=== PATIENT | male | born 1950 | race Caucasian/White ===

== ENCOUNTER 2024-03-17 08:58 | Inpatient (IN) | payer OTHER ==
--- OUTSIDE RECORDS SUMMARY | 2024-03-17 09:01 | XMS REPORT | Clinical Summary ---
Author Name Unknown Organization [facility] [place] Address [address] [place] [address] Care Team Providers Care Gas Operation Manager Name Role Phone David Álvarez MD Primary Care Provider [phone] Negrito Mott MD Unavailable [phone] William OCHOA MD, Thomas G Unavailable [phone] Allergies Active Allergy Reactions Criticality Noted Date Comments Clopidogrel Itching 10/23/2017 rash Penicillins Other (See Comments),Rash Low 6 Medications Medication Sig Dispensed Refills Start Date End Date Status aspirin 325 mg tablet Take 1 tablet (325 mg) by mouth daily. Active ascorbic acid (VITAMIN C) 500 mg tablet Take 1 tablet (500 mg) by mouth. Active busPIRone (BUSPAR) 7.5 mg tablet TAKE 1 TABLET BY MOUTH TWICE A DAY Active calcium carbonate (OS-RIDDHI) 600 mg calcium (1,500 mg) tablet Take 1 tablet (600 mg) by mouth. Active dupilumab (Dupixent Pen) 300 mg/2 mL pnij EVERY TWO WEEKS Act nick Toujeo SoloStar U-300 Insulin 300 unit/mL (1.5 mL) insulin pen INJECT 40 UNITS UNDER THE SKIN AT BEDTIME Active HumaLOG KwikPen Insulin 100 unit/mL insulin pen SEE ATTACHED INSTRUCTIONS FOR DETAILS Active magnesium oxide (MAOX) 400 mg tablet 0.5 tablets (200 mg). Active metFORMIN (GLUCOPHAGE) 1000 mg tablet Take 1 tablet (1,000 mg) by mouth 2 (two) times a day with meals. Active pantoprazole (PROTONIX) 40 mg EC tablet Take 1 tablet (40 mg) by mouth. 12/04/2017 Active omega 4-raq-tsp-fish oil (Fish OiL) 1,000 mg (120 mg-180 mg) cap Take by mouth. Active telmisartan-amLOD IPine (TWYNSTA) 40-5 mg per tablet TAKE 1 TABLET BY MOUTH EVERY DAY FOR 30 DAYS 11/12/2023 Active spironolactone (ALDACTONE) 25 mg tablet Take 1 tablet (25 mg) by mouth. Active carvedilol (COREG) 3.125 mg tablet Take 1 tablet (3.125 mg) by mouth. 10/15/2023 Active multivitamin tab tablet Take by mouth. Active omega-3 fatty acids (FISH OIL CONCENTRATE ORAL) Take by mouth. Act nick tamsulosin (FLOMAX) 0.4 mg 24 hr capsuleIndication s:Lower urinary tract symptoms Take 1 capsule (0.4 mg) by mouth daily. Take 30 minutes after evening meal. 90 capsule 3 12/05/2023 Active omeprazole (PriLOSEC) 20 mg capsule Take 1 capsule (20 mg) by mouth every morning before breakfast. 4 Discontinue d(Therapy completed) atorvastatin (LIPITOR) 80 mg tablet Take 1 tablet (80 mg) by mouth at bedtime. 12/15/2020 4 Discontinue d(Therapy completed) FreeStyle Tha 2 Sensor kit DIRECTED 07/25/2023 4 Discontinue d(Other/Not Applicable) triamcinolone (KENALOG) ointment 0.1% Apply topically to affected area(s). 4 Discontinue d(Therapy completed) TURMERIC ORAL Take by mouth. 4 Discontinue d(Therapy completed) Active Problems Problem Noted Date Diagnosed Date Nocturia 12/05/2023 Overactive bladder 12/05/2023 Urge incontinence 12/05/2023 Lower urinary tract symptoms 12/05/2023 Coronary arteriosclerosis 10/04/2023 Chronic kidney disease 10/04/2023 Hyperlipidemia 10/04/2023 Overview: Last Assessment & Plan: LDL goal less than 70. Maintained on statin therapy. Labs followed by PCP. -continue atorvastatin 80 mg Hypertension 10/04/2023 Overview: Last Assessment & Plan: Reports he was taken off multiple hypertensive medications following his right CEA due to hypertension. His PCP recently started him on telmisartan/amlodipine 45 mg - 5 mg as he has had progressively more hypertensive readings over the last few months. With his history of CABG recommended that we restart a beta-jose. Additionally reports he has not use his CPAP and months due to conversion from not using distilled water. This may explain his hypertensive readings. He will contact his previous sleep medicine physician Dr. Shahid. -continue telmisartan/amlodipine -start carvedilol 3.125 mg BID -Ambulatory blood pressure monitoring --> will contact clinic with readings in 2-3 weeks time. -RTC in 4 weeks Adenocarcinoma of prostate 10/04/2023 Cancer Staging:Clinical stage from 10/09/2023:Stage Unknown(cTX, cN0, cM0, PSA: 13.3, Grade Group: 2) - Signed by Phani Hammond PA on 10/09/2023 Overview: Last Assessment & Plan: Recently diagnosed stage II prostate cancer. Managed by Urology, Dr. Gamez History of myocardial infarction 10/04/2023 Type 2 diabetes mellitus 10/04/2023 Claudication 02/20/2018 Overview: Last Assessment & Plan: His leg cramping does not seem consistent with claudication. BRIDGETTE/Doppler 02/2018 with normal ABIs. Right leg had abnormal waveforms and there was <50% stenosis in the right common femoral artery. Suspect leg cramping may be due to electrolyte deficiency and/or dehydration. Encouraged increased water/electrolyte drink intake as well as a trial of magnesium supplementation. Disorder of carotid artery 10/23/2017 Overview: Last Assessment & Plan: S/p right CEA last summer. Followed by vascular, Dr. Love. -continue aspirin and statin Hemorrhage into subarachnoid space of neuraxis 0 04/05/2017 Overview: Last Assessment & Plan: Followed by neurology. Need stringent blood pressure control. History of coronary artery bypass grafting 12/23 Overview: Last Assessment & Plan: Stable and asymptomatic. Sternotomy site healed well Sleep apnea 10/19/2015 Overview: Last Assessment & Plan: Reports he has not used his CPAP in the last few months due to corrosion caused by not using distilled water. He will follow-up with his sleep medicine physician Dr. Shahid. Resolved Problems Problem Noted Date Diagnosed Date Resolved Date Diabetes mellitus 10/04/2023 10/09/2023 Overview: Last Assessment & Plan: Followed by PCP. Encounters Date Type Department Care Team Description 02/13/2024 10:30 AM CDT Follow-Up [facility] [address] [place] [address], [facility] [place] [address] Jr Thomas III, MD Lower urinary tract symptoms 02/13/2024 Travel 12/05/2023 11:00 AM CDT Consult [facility] [address] [place] [address], 7th [place] [address] Jr Thomas III, MD Lower urinary tract symptoms (Primary Dx); Adenocarcinoma of prostate; Overactive bladder; Urge incontinence; Nocturia 12/05/2023 Travel 10/09/2023 11:33 AM CDT - 10/09/2023 11:59 PM CDT Hospital Encounter [facility] [address] [place] [id number] Phani Hammond PA Adenocarcinoma of prostate Discharge Disposition: Home 10/09/2023 8:17 AM CDT - 10/09/2023 11:32 AM CDT Hospital Encounter [facility] - Radiation Oncology [address] [facility], 7th [place] [address] David Álvarez MD Choi, Seungtaek, MD Adenocarcinoma of prostate (Primary Dx) Discharge Disposition: Home 10/09/2023 8:00 AM CDT Office Visit Gen[facility] [address], 7th [place] [address] David Álvarez MD Adenocarcinoma of prostate (Primary Dx) 10/09/2023 Orders Only [facility] [address] [place] [address], 7th [place] [address] Phani Hammond PA Adenocarcinoma of prostate (Primary Dx) 10/09/2023 Travel 10/05/2023 9:30 AM CDT NPR [facility] PATIENT ACCESS 09/16/2023 8:05 PM DOOR MAKER Ancillary Procedure [facility] [address] [place] [address] David Álvarez MD Cancer 09/16/2023 8:00 PM DOOR MAKER Ancillary Procedure [facility] [address] [place] [id number] David Álvarez MD Cancer 09/07/2023 11:45 PM DOOR MAKER Ancillary Procedure [facility] [address] [place] [address] David Álvarez MD Cancer 09/07/2023 11:40 PM DOOR MAKER Ancillary Procedure [facility] [address] [place] [address] David Álvarez MD Cancer 09/07/2023 11:35 PM DOOR MAKER Ancillary Procedure [facility] [address] [place] [address] David Álvarez MD Cancer 09/05/2023 Travel 09/05/2023 Lab Requisition [facility] Fady Quezada MD Putzi, Mathew J, MD after 03/18/2023 Surgical History Surgery Date Site/Laterality Comments CORONARY ARTERY BYPASS GRAFT 07/23/2015 - 07/22/2016 6 vessel CAROTID ARTERY ANGIOPLASTY 08/28/2023 Medical History Medical History Date Comments Obstructive sleep apnea syndrome Ulcerative colitis Coronary artery disease due to calcified coronary lesion Type 2 diabetes mellitus 10/04/2023 Disorder of carotid artery 10/23/2017 Last Assessment & Plan: S/p right CEA last summer.Followed by vascular, Dr. Love.-continue aspirin and statin Hypertension 10/04/2023 Last Assessment & Plan: Reports he was taken off multiple hypertensive medications following his right CEA due to hypertension. His PCP recently started him on telmisartan/amlodipine 45 mg - 5 mg as he has had progressively more hypertensive readings over the last few months. With his history of CABG recommended that we restart a Claudication 02/20/2018 Last Assessment & Plan: His leg cramping does not seem consistent with claudication. BRIDGETTE/Doppler 02/2018 with normal ABIs. Right leg had abnormal waveforms and there was <50% stenosis in the right common femoral artery. Suspect leg cramping may be due to electrolyte deficiency and/or dehydration. Encouraged increased water/andrew Hyperlipidemia 10/04/2023 Last Assessment & Plan: LDL goal less than 70. Maintained on statin therapy. Labs followed by PCP.-continue atorvastatin 80 mg History of myocardial infarction 10/04/2023 Family History Medical History Relation Name Comments Prostate cancer Father Breast cancer Sister Relation Name Status Comments Father Sister Social History Tobacco Use Types Packs/Day Years Used Date Smoking Tobacco: Former Cigarettes Smokeless Tobacco: Former Snuff Quit: 2003 Tobacco Cessation:Counseling Given: Not Answered Education Answer Date Recorded What is the highest level of school you have completed or the highest degree you have received? Associate degree: occupational, technical, or vocational program 10/09/2023 Sex and Gender Information Value Date Recorded Sex Assigned at Not on file Gender Identity Not on file Sexual Orientation Not on file Job Start Date Occupation Industry Not on file Not on file Not on file Obstetrics History Last Filed Vital Signs Vital Sign Reading Time Taken Comments Blood Pressure 138/77 02/13/2024 10:21 AM CDT Pulse 86 02/13/2024 10:21 AM CDT Temperature 36.1 C (97 F) 02/13/2024 10: 21 AM CDT Respiratory Rate 15 02/13/2024 10:2 1 AM CDT Oxygen Saturation 97% 02/13/2024 10: 21 AM CDT Inhaled Oxygen Concentration - - Weight 110.4 kg (243 lb 6.2 oz) 024 10:21 AM CDT Height 169.5 cm (5' 6.73") 02/13/2024 1 0:21 AM CDT Body Mass Index 38.43 02/13/2024 10:21 AM CDT Plan of Treatment Health Maintenance Due Date Last Done Comments Pneumococcal Vaccine: 65+ Ye ars (2 of 2 - PCV) 04/24/2018 04/24/2017 COVID-19 Vaccine (2022-24 season) 2023 Influenza Vaccine 03/23/2024 04/04/2023, 04/24/2017 Procedures Procedure Name Priority Date/Time Associated Diagnosis Comments PROSTATE SPECIFIC ANTIGEN Routine 10/09/2023 11:41 AM CDT Adenocarcinoma of prostate after 03/18/2023 Results * (ABNORMAL) PSA (10/09/2023 11:41 AM CDT) Prostate Specific Antigen 16.1(H) 0.0 - 4.0 ng/mL 10/09/2023 12:33 PM CDT [facility] PSA Indication Diagnostic 10/09/2023 12:33 PM CDT [facility] Blood Peripheral blood specimen / Unknown Venipuncture / Unknown 10/09/2023 11:41 AM CDT 10/09/2023 11:44 AM CDT Narrative [facility] - 10/09/2023 12:33 PM CDT "Reference range established based on adult population Results greater than 4519 ng/mL may not be reliable due to matrix effect with extended dilution as it exceeds the guest services agent's recommended limit. Caution should be exercised when interpreting such values and done in conjunction with clinical context. Phani CHOI LAB BLOOD ORDERABLE S [facility] [address] [facility] [place] [address] after 03/18/2023 Care Teams Gas Operation Manager Relationship Specialty Start Date End Date David Álvarez MD [address] [place] [phone] [email or web address] PCP - General Urology 09/05/23 Negrito Mott MD [address] [place] [phone] [email or web address] Consulting Physician Radiation Oncology 10/09/23 Jr Thomas III, MD [address] [place] [address] [phone] [email or web address] Consulting Physician Urology 12/05/23
[2024-03-17] MEDS ORDERED: PANTOPRAZOLE 40 MG INJ ONE (09:18)
[2024-03-17] MEDS ORDERED: NA CHLORIDE 0.9% 250 ML ONE (09:19)
[2024-03-17] MEDS ORDERED: NA CHLORIDE 0.9% 1,000 ML ONE (09:19)
[2024-03-17 09:27] LABS: Absolute Basophils 0.1 K/uL (0-0.5); Absolute Lymphocytes (CBC) 1.3 K/uL (0.7-4.9); Absolute Monocytes 0.5 K/uL (0.1-1.3); Basophils % 0.6 % (0-1.3); Eosinophils % 0.3 % (0-4.4); Lymphocytes % 11.7 % (15.3-44.8); MCH 27.3 pg (27.0-35.0); MCHC 32.3 g/dL (32.0-36.0); MCV 84.5 fL (80-100); MPV 7.1 fL (7.6-11.3); Monocytes % 4.6 % (3.3-12.3); Neutrophils % 82.8 % (41.7-73.7); Platelets 258 thou/uL (152-406); RBC Red Blood Cell Count 4.03 M/uL (4.33-5.43); Red Cell Distribution Width 16.8 % (12.1-15.2)
[2024-03-17 09:30] LABS: PT Prothrombin Time 12.7 SECONDS (9.4-12.5); Protime INR 1.14
[2024-03-17 09:41] LABS: Albumin 3.4 g/dL (3.4-5.0); Albumin/Globulin Ratio 1.1 (1.1-1.8); Anion Gap 12.1 mEq/L (5.0-15.0); Bilirubin Total 0.6 mg/dL (0.2-1.0); Globulin 3.2 g/dL (2.3-3.5); Potassium 5.1 mEq/L (3.5-5.1); Protein, Total 6.6 g/dL (6.4-8.2)
--- NOTE | 2024-03-17 10:06 | RAD REPORT ---
EXAM DESCRIPTION: CT - Abdomen Pelvis Wo Contrast - 03/17/2024 9:23 am CLINICAL HISTORY: ABD PAIN COMPARISON: No comparisons TECHNIQUE: Thin cut axial CT imaging of the abdomen and pelvis was performed without IV contrast. Mu ltiplanar reformats were generated and reviewed. All CT scans are performed using dose optimization technique as appropriate and may include automated exposure control or mA/KV adjustment according to patient size. FINDINGS: No suspicious findings in the lung bases. The liver, spleen, and pancreas show no suspicious findings. . Small left adrenal 1.4 cm nodule conta ining macroscopic fat density. Gallbladder and biliary tree are also without suspicious finding. Symmetric renal contour, without suspicious parenchymal findings within limits of noncontrast techniq ue. No evidence of hydroureteronephrosis. Few small punctate bilateral renal calculi not exceeding 3 mm in size. Few small exophytic renal cysts. Largest measuring 1.4 cm. No dilated bowel loops or bowel wall thickening. No free air, free fluid or inflammatory stranding. N o hernia, mass or bulky lymphadenopathy. Mild colonic diverticulosis. The urinary bladder is without significant finding. No suspicious bony findings. IMPRESSION: Few small nonobstructing bilateral renal calculi not exceeding 3 mm. No other acute intra-abdominal process. Incidentally noted 1.4 cm left adrenal fat containing nodule, suggesting a small myelolipoma. Mild colonic diverticulosis.
--- NOTE | 2024-03-17 10:30 | EDPHYS ---
Physician Documentation [facility] Name: Blair Hall Age: 73 yrs Sex: Male : 1950 Arrival Date: 03/17/2024 Time: 08:58 Bed 2 Private MD: ED Physician Nicolas Warner HPI: 03/17 09:04 This 73 yrs old Male presents to ER via EMS with complaints of GI Bleeding. ec2 09:04 Patient arrives today d/t concern for melena as well as vomiting coffee-ground emesis. ec2 Patient reports history of alcohol abuse however no diagnosis of cirrhosis. Patient with history of previous GI bleed however greater than 40 years ago. No significant abdominal pain. Is on aspirin, no other antiplatelet or anticoagulation.. Historical: - Allergies: 09:02 PENICILLINS; dd2 - PMHx: 09:02 Diabetes mellitus; Hypertensive disorder; Gastroesophageal reflux disease; dd2 - PSHx: 09:02 Coronary artery bypass graft; dd2 - Immunization history:: Adult Immunizations unknown. - Infectious Disease History:: Denies. - Social history:: Smoking status: Patient denies any tobacco usage or history of. ROS: 09:04 Constitutional: as per hpi ec2 Exam: 09:04 Constitutional: GEN: NAD Head: atraumatic Eyes: EOMI Ears: External ears are ec2 normal. CV: tachycardia LUNGS: no respiratory distress ABD: Soft, not guarding, not rigid SKIN: no evidence of rashes MSK: no evidence of trauma Vital Signs: 09:00 BP 122 / 84; Pulse 116; Resp 16; Temp 98.3; Pulse Ox 98% ; dd2 09:36 BP 103 / 84; Pulse 117; Resp 18 S; Pulse Ox 98% on R/A; Pain 0/10; iw 09:45 BP 107 / 78; Pulse 112; ec2 10:37 BP 102 / 68; Pulse 103; Resp 22; Temp 98.3; Pulse Ox 99% on R/A; kj2 11:45 BP 80 / 62; Pulse 116; Resp 23; Pulse Ox 98% on R/A; cm10 12:00 BP 96 / 78; Pulse 113; Resp 22; Pulse Ox 97% on R/A; cm10 12:30 BP 99 / 66; Pulse 114; Resp 22; Pulse Ox 97% on R/A; cm10 13:00 BP 120 / 67; Pulse 115; Resp 23; Pulse Ox 98% on R/A; cm10 13:15 BP 130 / 60; Pulse 114; Resp 21; Pulse Ox 97% on R/A; cm10 14:15 BP 101 / 58; Pulse 104; Resp 19; Pulse Ox 94% on R/A; cm10 15:00 BP 118 / 71; Pulse 107; Resp 19; Pulse Ox 98% on R/A; cm10 15:30 BP 134 / 58; Pulse 107; Resp 19; Pulse Ox 99% on R/A; cm10 16:00 BP 127 / 52; Pulse 113; Resp 21; Pulse Ox 98% on R/A; cm10 16:30 BP 122 / 60; Pulse 112; Resp 22; Pulse Ox 99% on R/A; cm10 17:00 BP 120 / 60; Pulse 108; Resp 19; Pulse Ox 98% on R/A; cm10 09:36 Pain Scale: Adult iw MDM: 08:58 Patient medically screened. ec2 09:04 Data reviewed: vital signs. ED course: Patient arrives today for melena as well as ec2 vomiting coffee-ground emesis. Examination remarkable for nontender abdomen otherwise slight tachycardia noted. Will obtain lab work, CT imaging, give the patient Protonix. Suspect GI bleed, possible variceal versus ulcer, possible gastritis . 09:17 ED course: EKG independently reviewed and interpreted by me, shows sinus tachycardia, ec2 rate 113, no acute ST segment elevations, intervals nonconcerning, PAC noted.. 09:35 ED course: CBC shows slight anemia. . ec2 10:28 ED course: I discussed the case with the lamps tester and inspector, who will ec2 consult. Discussed the case with the hospitalist will admit.. 03/17 09:04 Order name: CBC with Diff; Complete Time: 09:34 ec2 03/17 09:04 Order name: CMP; Complete Time: 09:45 ec2 03/17 09:04 Order name: PT-INR; Complete Time: 09:34 ec2 03/17 09:04 Order name: Ptt, Activated; Complete Time: 09:34 ec2 03/17 09:04 Order name: Type And Screen ec2 03/17 10:36 Order name: Antibody Identification EDMS 03/17 13:46 Order name: Hematocrit EDMS 03/17 13:46 Order name: Hemoglobin EDMS 03/17 13:46 Order name: Basic Metabolic Panel EDMS 03/17 13:46 Order name: Basic Metabolic Panel EDMS 03/17 13:46 Order name: Basic Metabolic Panel EDMS 03/17 13:46 Order name: Basic Metabolic Panel EDMS 03/17 13:46 Order name: Basic Metabolic Panel EDMS 03/17 13:46 Order name: Basic Metabolic Panel EDMS 03/17 13:46 Order name: Basic Metabolic Panel EDMS 03/17 13:46 Order name: Basic Metabolic Panel EDMS 03/17 13:46 Order name: CBC with Automated Diff EDMS 03/17 13:46 Order name: CBC with Automated Diff EDMS 03/17 13:46 Order name: CBC with Automated Diff EDMS 03/17 13:46 Order name: CBC with Automated Diff EDMS 03/17 13:46 Order name: CBC with Automated Diff EDMS 03/17 13:46 Order name: CBC with Automated Diff EDMS 03/17 13:46 Order name: CBC with Automated Diff EDMS 03/17 13:46 Order name: CBC with Automated Diff EDMS 03/17 13:46 Order name: Lipid Profile EDMS 03/17 13:46 Order name: Lipid Profile EDMS 03/17 13:46 Order name: Magnesium EDMS 03/17 13:46 Order name: Magnesium EDMS 03/17 13:46 Order name: Magnesium EDMS 03/17 13:46 Order name: Magnesium EDMS 03/17 13:46 Order name: Magnesium EDMS 03/17 13:46 Order name: Magnesium EDMS 03/17 13:46 Order name: Magnesium EDMS 03/17 13:46 Order name: Magnesium EDMS 03/17 13:46 Order name: Phosphorus EDMS 03/17 13:46 Order name: Phosphorus EDMS 03/17 13:46 Order name: Phosphorus EDMS 03/17 13:46 Order name: Phosphorus EDMS 03/17 13:46 Order name: Phosphorus EDMS 03/17 13:46 Order name: Phosphorus EDMS 03/17 13:46 Order name: Phosphorus EDMS 03/17 13:46 Order name: Phosphorus EDMS 03/17 13:52 Order name: ABO/RH no charge EDMS 03/17 16:57 Order name: Glucose, Ancillary Testing EDMS 03/17 09:04 Order name: CT Abd/Pelvis - Without Contrast; Complete Time: 10:21 ec2 03/17 13:46 Order name: CONS Physician Consult EDMD 03/17 09:04 Order name: IV Saline Lock; Complete Time: 09:12 ec2 03/17 09:04 Order name: Labs collected and sent; Complete Time: 09:12 ec2 Administered Medications: 09:35 Drug: Pantoprazole IV 8 mg/hr IV at 25 ml/hr continuous; (Standard dilution is 80 mg in iw 250 mL NS) Route: IV; Rate: 25 ml/hr; Site: right wrist; 17:20 Follow up: IV Status: Infusion continued upon admission cm10 09:36 Drug: Pantoprazole IVP 80 mg IVP once Route: IVP; Site: right wrist; iw 10:45 Follow up: Response: No adverse reaction kj2 09:36 Drug: NS 0.9% IV 1000 ml IV at 1 bolus Per protocol; 1000 mL bolus Route: IV; Rate: 1 iw bolus; Site: right hand; 17:20 Follow up: Response: No adverse reaction; IV Status: Completed infusion; IV Intake: cm10 1000ml Disposition Summary: 03/17/24 10:29 Hospitalization Ordered Notes: Hospitalization Status: Inpatient Admission ec2 Provider: Geronimo Wells ecShandra Condition: Stable ec2 Problem: new ec2 Symptoms: have improved ec2 Bed/Room Type: Standard ec2 Location: Telemetry/MedSurg (Inpatient)(03/17/24 15:39) bd Room Assignment: 221(03/17/24 15:44) bd Diagnosis - GI Bleed/ Gastrointestinal hemorrhage, unspecified ec2 Forms: - Medication Reconciliation Form ec2 - SBAR form ec2 - Leadership Thank You Letter ec2 Signatures: Dispatcher [employer] EDMS Disha Allred bd Yazmin Brennan RN RN iw Nicolas Warner MD MD ec2 RIGOBERTO LUDWIG RN RN dd2 Zarina Mansfield RN cm10 Romana Moraes RN kj2 Corrections: (The following items were deleted from the chart) 09:05 09:05 CBC+H.LAB.BRZ ordered. EDMS EDMS 09:05 09:05 COMPREHENSIVE METABOLIC PANEL+C.LAB.BRZ ordered. EDMS EDMS 09:05 09:05 PROTIME (+INR)+COAG.LAB.BRZ ordered. EDMS EDMS 09:05 09:05 PTT, ACTIVATED+COAG.LAB.BRZ ordered. EDMS EDMS 09:05 09:05 TYPE AND SCREEN+BB.LAB.BRZ ordered. EDMS EDMS 09:05 09:05 Abdomen Pelvis Wo Con+CT.RAD.BRZ ordered. EDMS EDMS 09:06 09:04 Constitutional: GEN: NAD Head: atraumatic Eyes: EOMI Ears: External ears are ec2 normal. CV: regular rate LUNGS: no respiratory distress ABD: Soft, not guarding, not rigid SKIN: no evidence of rashes MSK: no evidence of trauma ec2 13:13 10:29 Telemetry/MedSurg (Inpatient) ec2 bd 13:13 10:29 ec2 bd 15:39 13:13 [facility] ER HOLD bd bd 15:39 13:13 ERHOLD- bd bd 15:44 15:39 422 bd bd
--- NOTE | 2024-03-17 10:30 | ER ---
Nurse's Notes [facility] Name: Blair Hall Age: 73 yrs Sex: Male : 1950 Arrival Date: 03/17/2024 Time: 08:58 Bed 2 Private MD: Diagnosis: GI Bleed/ Gastrointestinal hemorrhage, unspecified Presentation: 03/17 09:00 Chief complaint: EMS states: Pt brought in via EMS from home with c/o coffee ground dd2 emesis and black tarry stools. EMS states pt was pale on arrival. BGS 222. Coronavirus screen: At this time, the client does not indicate any symptoms associated with coronavirus-19. Ebola Screen: No symptoms or risks identified at this time. Initial Sepsis Screen: Does the patient meet any 2 criteria? No. Patient's initial sepsis screen is negative. Does the patient have a suspected source of infection? No. Patient's initial sepsis screen is negative. Risk Assessment: Do you want to hurt yourself or someone else? Patient reports no desire to harm self or others. Onset of symptoms is unknown. Care prior to arrival: Medication(s) given: Normal saline infusion, 500 mL, zofran 4 mg, IV initiated. 20 GA, in the right hand, Glucose check: 222. 09:00 Method Of Arrival: EMS: [facility] dd2 09:00 Acuity: DESHAUN 3 dd2 Triage Assessment: 09:02 General: Appears ill, Behavior is calm, cooperative. Pain: Complains of pain in abdomen.dd2 Historical: - Allergies: 09:02 PENICILLINS; dd2 - PMHx: 09:02 Diabetes mellitus; Hypertensive disorder; Gastroesophageal reflux disease; dd2 - PSHx: 09:02 Coronary artery bypass graft; dd2 - Immunization history:: Adult Immunizations unknown. - Infectious Disease History:: Denies. - Social history:: Smoking status: Patient denies any tobacco usage or history of. Screenin:16 [facility] ED Fall Risk Assessment (Adult) History of falling in the last 3 months, iw including since admission No falls in past 3 months (0 pts) Confusion or Disorientation No (0 pts) Intoxicated or Sedated No (0 pts) Impaired Gait No (0 pts) Mobility Assist Device Used Yes (1 pt) Altered Elimination No (0 pt) Score/Fall Risk Level 0 - 2 = Low Risk Oriented to surroundings, Maintained a safe environment. Abuse screen: Denies threats or abuse. Nutritional screening: No deficits noted. Tuberculosis screening: No symptoms or risk factors identified. Assessment: 09:16 General: Appears uncomfortable, Behavior is calm, cooperative. Neuro: Level of iw Consciousness is awake, alert, obeys commands, Oriented to person, place, time, situation, Moves all extremities. GI: Reports rectal bleeding, bloody stool, vomiting. Derm: Skin is pink, warm \\T\\ dry. Decubitus. 10:43 Reassessment: Patient appears in no apparent distress at this time. Patient and/or kj2 family updated on plan of care and expected duration. Pain level reassessed. Patient is alert, oriented x 3, equal unlabored respirations, skin warm/dry/pink. 12:00 Reassessment: Patient appears in no apparent distress at this time. No changes from cm10 previously documented assessment. Patient and/or family updated on plan of care and expected duration. Pain level reassessed. Patient is alert, oriented x 3, equal unlabored respirations, skin warm/dry/pink. 14:00 Reassessment: Pt assisted with bedpan. Pt not able to have a BM. Pt noted to be clean. cm10 Vital Signs: 09:00 BP 122 / 84; Pulse 116; Resp 16; Temp 98.3; Pulse Ox 98% ; dd2 09:36 BP 103 / 84; Pulse 117; Resp 18 S; Pulse Ox 98% on R/A; Pain 0/10; iw 09:45 BP 107 / 78; Pulse 112; ec2 10:37 BP 102 / 68; Pulse 103; Resp 22; Temp 98.3; Pulse Ox 99% on R/A; kj2 11:45 BP 80 / 62; Pulse 116; Resp 23; Pulse Ox 98% on R/A; cm10 12:00 BP 96 / 78; Pulse 113; Resp 22; Pulse Ox 97% on R/A; cm10 12:30 BP 99 / 66; Pulse 114; Resp 22; Pulse Ox 97% on R/A; cm10 13:00 BP 120 / 67; Pulse 115; Resp 23; Pulse Ox 98% on R/A; cm10 13:15 BP 130 / 60; Pulse 114; Resp 21; Pulse Ox 97% on R/A; cm10 14:15 BP 101 / 58; Pulse 104; Resp 19; Pulse Ox 94% on R/A; cm10 15:00 BP 118 / 71; Pulse 107; Resp 19; Pulse Ox 98% on R/A; cm10 15:30 BP 134 / 58; Pulse 107; Resp 19; Pulse Ox 99% on R/A; cm10 16:00 BP 127 / 52; Pulse 113; Resp 21; Pulse Ox 98% on R/A; cm10 16:30 BP 122 / 60; Pulse 112; Resp 22; Pulse Ox 99% on R/A; cm10 17:00 BP 120 / 60; Pulse 108; Resp 19; Pulse Ox 98% on R/A; cm10 09:36 Pain Scale: Adult iw ED Course: 08:58 Patient arrived in ED. dd2 08:58 Nicolas Warner MD is Attending Physician. ec2 09:02 Triage completed. dd2 09:02 Initial lab(s) drawn, by me. Maintain EMS IV. Dressing intact. Good blood return noted. iw Site clean \\T\\ dry. Gauge \\T\\ site: 20 RAC. 09:02 Arm band placed on left wrist. Patient placed in an exam room, on a stretcher, on dd2 film inspector, on pulse oximetry. 09:15 Yazmin Brennan, RN is Primary Nurse. iw 09:20 Inserted saline lock: 20 gauge in right hand, using aseptic technique. Flushed with 10 zm mL NS. 09:23 CT Abd/Pelvis - Without Contrast In Process Unspecified. EDMS 10:29 Geronimo Wells is Hospitalizing Provider. ec2 10:36 Patient has correct armband on for positive identification. Bed in low position. Call kj2 light in reach. Provided Education on: call light, fall precautions. Report received from ALLISON Arce. 10:43 No provider procedures requiring assistance completed. kj2 13:23 1323 CM met with patient and daughter Diana at bedside in the ED exam room. Patient ane identified by name and . Demographic sheet confirmed. states he lives alone at [facility]. Patient reports he occasionally uses a cane, stating "It depends on how my legs feel." Other DME includes a built in shower seat and gin pole operator bars in his bathroom. Mr. Hall reports he does not have HH, home oxygen or other medical services at this time. No MPOA at this time, both and Diana wish to complete an MPOA at this time. CM left MPOA document for 's and Diana's review. 's preferred discharge plan is to return to live at [facility] and Diana states she can transport him home. CM team will continue to follow and coordinate care. 16:55 Patient admitted, IV remains in place. cm10 Administered Medications: 09:35 Drug: Pantoprazole IV 8 mg/hr IV at 25 ml/hr continuous; (Standard dilution is 80 mg in iw 250 mL NS) Route: IV; Rate: 25 ml/hr; Site: right wrist; 17:20 Follow up: IV Status: Infusion continued upon admission cm10 09:36 Drug: Pantoprazole IVP 80 mg IVP once Route: IVP; Site: right wrist; iw 10:45 Follow up: Response: No adverse reaction [facility] 09:36 Drug: NS 0.9% IV 1000 ml IV at 1 bolus Per protocol; 1000 mL bolus Route: IV; Rate: 1 iw bolus; Site: right hand; 17:20 Follow up: Response: No adverse reaction; IV Status: Completed infusion; IV Intake: cm10 1000ml Medication: 09:17 VIS not applicable for this client. iw Intake: 17:20 IV: 1000ml; Total: 1000ml. cm10 Outcome: 10:29 Decision to Hospitalize by Provider. ec2 16:56 Admitted to Med/surg accompanied by tech, via wheelchair, room 221, 10 16:56 Condition: good 16:56 Instructed on the need for admit, 17:21 Patient left the ED. cm10 Signatures: Dispatcher [employer] Yazmin Hernández RN RN iw Martinez, Zaina zm Martinez, Clarissa, RN RN 10 Nicolas Warner MD MD ec2 Romana Moraes RN RN kj2 Lexis Gaitan RN RN ane DAVIS, DIANA RN RN dd2
--- NOTE | 2024-03-17 12:10 | P.HP ---
Certification for Inpatient Patient admitted to: Inpatient Practitioner: I am a practitioner with admitting privileges, knowledge of patient current condition, hospital course, and medical plan of care. Services: Services provided to patient in accordance with Admission requirements found in Title 42 Section 412.3 of the Code of Federal Regulations Patient History Date of Service: 03/17/24 Reason for admission: GI bleed History of Present Illness: Blair Hall is a 73 year old male with PMhx diabetes mellitusNIDDM, GERD, hypertension, CAD status post CABG who presents to the ED with chief complaint of vomiting blood with coffee-ground emesis and bloody stool early this morning. He reports having a GI bleed multiple years ago and denies taking blood thinners. On evaluation, he appears sleepy, tachycardic with soft blood pressure. PPI gtt started in the ED. Abdomen distended and nontender, he is in no acute distress. Initial vitals BP 122 / 84; Pulse 116; Resp 16; Temp 98.3; Pulse Ox 98% Laboratory evaluation H&H 11/34, neutrophils 82, sodium 133, BUN/creatinine 44/1.29, GFR 58, serum glucose 236. CT abdomen pelvis reports "Few small nonobstructing bilateral renal calculi not exceeding 3 mm. No other acute intra-abdominal process. Incidentally noted 1.4 cm left adrenal fat containing nodule, suggesting a small myelolipoma. Mild colonic diverticulosis." Blair will be admitted to hospitalist service for further evaluation and treatment, Dr. Soriano consulted. Allergies Penicillins Allergy (Verified 03/17/24 16:42) Itching/Hives/Rash Home Medications: Buspirone HCl 7.5 mg PO BID 03/17/24 Carvedilol [Coreg] 3.125 mg PO BID 03/17/24 Magnesium [Magnesium Gluconate] 200 mg PO BEDTIME 03/17/24 Mesalamine 1.2 gm PO BEDTIME 03/17/24 Metformin HCl 1,000 mg PO BID 03/17/24 Spironolactone 25 mg PO DAILY 03/17/24 Tamsulosin HCl 0.4 mg PO BEDTIME 03/17/24 Telmisartan/Amlodipine [Telmisartan-Amlodipine 40-5 mg] 1 tab PO DAILY 03/17/24 - Past Medical/Surgical History -: Diabetes mellitusNIDDM -: Hypertensive disorder -: GERD -: CABG - Social History Smoking Status: Former smoker Alcohol use: No CD- Drugs: No Review of Systems General: Chills, Weakness Gastrointestinal: Nausea, Vomiting Neurological: Other (dizziness) Physical Examination - Physical Exam General: Alert, In no apparent distress, Oriented x3 HEENT: Atraumatic, Normocephalic, PERRLA Neck: Supple, JVD not distended Respiratory: Clear to auscultation bilaterally, Normal air movement Cardiovascular: Normal pulses, Normal S1 S2, Irregular heart rate/rhythm (tachycardic) Capillary refill: <2 Seconds Gastrointestinal: Normal bowel sounds, Soft and benign, No tenderness, Distended (obese) Musculoskeletal: No clubbing Integumentary: No rashes Neurological: Normal speech, Normal tone - Studies Laboratory Data (last 24 hrs) 03/17/24 03/17/24 03/17/24 09:08 09:08 09:08 WBC 10.90 Hgb 11.0 L Hct 34.0 L Plt Count 258 PT 12.7 H INR 1.14 APTT 25.0 Sodium 133 L Potassium 5.1 BUN 44 H Creatinine 1.29 Glucose 236 H Total Bilirubin 0.6 AST 16 ALT 33 Alkaline Phosphatase 44 L Assessment and Plan - Plan Assessment and Plan Acute GI bleed -CT abd/pelvis Few small nonobstructing bilateral renal calculi not exceeding 3 mm. No other acute intra-abdominal process. Incidentally noted 1.4 cm left adrenal fat containing nodule, suggesting a small myelolipoma. Mild colonic diverticulosis. -Denies taking blood thinners, has a history of GI several years ago. -H/H , repeat H/H -transfuse PRN -PPI gtt -NPO -Soriano consulted, plan for scope in the AM Diabetes mellitus-NIDDM -accucheck with SSI -Serum glucose 159 Hypertensive disorder Gastroesophageal reflux disease -Continue home medications renal calculi left adrenal fat containing nodule colonic diverticulosis -Incidental findings on CT Abd/pelvis "Few small nonobstructing bilateral renal calculi not exceeding 3 mm. No other acute intra-abdominal process. Incidentally noted 1.4 cm left adrenal fat containing nodule, suggesting a small myelolipoma. Mild colonic diverticulosis. -Follow up with urology and nephrology outpatient. hyponatremia -Na 133 -gentle IVF CAD status post CABG -follow up with outpatient DVT ppx SCD d/t GI bleed full code LOS 2 days Discharge Plan: Home Plan to discharge in: 48 Hours - Advance Directives Does patient have a Living Will: No Does patient have a Durable POA for Healthcare: No
[2024-03-17] MEDS ORDERED: ACETAMINOPHEN 500 MG TAB PO PRN (13:38)
[2024-03-17] MEDS ORDERED: ACETAMINOPHEN 325 MG TABLET PO PRN (13:38)
[2024-03-17] MEDS: PANTOPRAZOLE INJ 80 MG in NA CHLORIDE 0.9% 250 ML IV SCH ×2 (16:00→18:30)
[2024-03-17] MEDS: INSULIN REGULAR (HUMAN) 100 UNIT/ML SQ SCH (16:30)
[2024-03-17 16:40] VITALS: BMI 34.5
[2024-03-17] MEDS: NA CHLORIDE 0.9% 1,000 ML IV SCH (18:37)
[2024-03-18] MEDS: EPINEPHRINE 1 MG/ML VIAL ONE (08:05)
[2024-03-18] MEDS ORDERED: propofoL 200 MG/20 ML VIAL IV ONE (09:29)
[2024-03-18] MEDS ORDERED: LIDOCAINE 1% MPF 5 ML VIAL ONE (09:29)
[2024-03-18 10:37] LABS: Absolute Basophils 0.1 K/uL (0-0.5); Absolute Eosinophils 0.1 K/uL (0-0.5); Absolute Lymphocytes (CBC) 2.6 K/uL (0.7-4.9); Absolute Monocytes 0.8 K/uL (0.1-1.3); Absolute Neutrophil 7.7 K/uL (1.8-8.0); Basophils % 0.5 % (0-1.3); Eosinophils % 1.2 % (0-4.4); Hemoglobin 9.4 g/dL (13.6-17.9); Lymphocytes % 22.7 % (15.3-44.8); MCH 27.2 pg (27.0-35.0); MCHC 32.3 g/dL (32.0-36.0); MCV 84.3 fL (80-100); MPV 6.5 fL (7.6-11.3); Monocytes % 7.4 % (3.3-12.3); Neutrophils % 68.2 % (41.7-73.7); Platelets 224 thou/uL (152-406); RBC Red Blood Cell Count 3.44 M/uL (4.33-5.43); Red Cell Distribution Width 17.2 % (12.1-15.2)
[2024-03-18 10:55] LABS: Anion Gap 8.7 mEq/L (5.0-15.0); Magnesium 1.5 mg/dL (1.6-2.4); Phosphorus 2.5 mg/dL (2.5-4.9); Potassium 4.7 mEq/L (3.5-5.1)
--- NOTE | 2024-03-18 11:50 | CON ---
Reason For Consultation: Upper GI bleed. History Of Presenting Illness: The patient is a 73-year-old gentleman who does have prior history of upper GI bleed secondary to a duodenal ulcer. However, he has not been on PPI for some time. He st ated that he started seeing some dark stools recently and restarted his Nexium; however, started havi ng episodes of coffee-grounds emesis and hematemesis, came to the ER, was admitted with initial impre ssion of GI bleed, and GI was consulted. Past Medical History: Diabetes, GERD, hypertension, coronary artery disease, status post CABG, histo ry of bleeding duodenal ulcer, on high-dose aspirin. Past Surgical History: CABG, as mentioned above. Social History: No current toxic habits. Family History: Noncontributory. Review of Systems: GI: As in HPI; otherwise, negative. Remainder of 10-point review of systems is negative. Home Medications: As in the chart. Physical Examination: Vital Signs: On presentation, blood pressure 122/84, pulse 116, respiratory rate 16, temperature 98. 3. HEENT: Head atraumatic, normocephalic. Pupils equally reactive. Neck: Supple. Chest: Clear to auscultation bilaterally. Abdomen: Soft, but appears obese. Bowel sounds are present. Extremities: No pedal edema. BRIDGE MANAGER: Alert and oriented x3. CVS: S1, S2 plus. Laboratory Data: Reviewed. Initial hemoglobin was 11, which dropped to 9. He has not had any furth er episodes since being admitted. Impression: 73-year-old gentleman with multiple medical problems, prior history of duodenal ulcer bl eeding, now presents with upper gastrointestinal bleed, likely recurrence of duodenal ulcer. Plan: Continue current management. Protonix drip. We will keep the patient NPO. We will schedule the patient for an upper endoscopy. Risks and complications which include, but are not limited to, b leeding, infection, perforation, and anesthesia complications were discussed. He understands and agr ees. US/MODL Voice ID: [id number] Report ID: [id number]
--- NOTE | 2024-03-18 12:43 | EKG ---
Test Date: 2024-03-17 Test Time: 09:12:11 Sheet Ironworker: NASIMA MEASUREMENT RESULTS: Intervals: Rate: 113 AR: 168 QRSD: 88 QT: 308 QTc: 422 [place]: P: 46 AR: 168 QRS: 78 T: 38 INTERPRETIVE STATEMENTS: Sinus tachycardia with premature atrial complexes Otherwise normal ECG No previous ECG available for comparison Electronically Signed On 03-18-24 12:40:10 CDT by Keven Scott
--- NOTE | 2024-03-18 14:22 | P.PN ---
Date of Service: 03/18/24 Subjective: Seen status post EGD No complaints at this time No acute events overnight ROS: 10 point ROS as noted above, otherwise negative Physical exam GEN: Alert, oriented, NAD HEENT: Normal conjunctiva, sclera anicteric CV: Regular rate and rhythm, no edema Pulm: Nonlabored respirations on room air ABD: Soft, nontender, nondistended MSK: No joint tenderness Integumentary: No rashes Neuro: Normal speech, normal affect Vitals reviewed Assessment and Plan Upper GI bleed secondary to large bleeding gastric ulcer Acute blood loss anemia -CT abd/pelvis Few small nonobstructing bilateral renal calculi not exceeding 3 mm. No other acute intra-abdominal process. Incidentally noted 1.4 cm left adrenal fat containing nodule, suggesting a small myelolipoma. Mild colonic diverticulosis. -Denies taking blood thinners, has a history of GI several years ago. -transfuse PRN -Continue Protonix continuous infusion -EGD 03/18 shows large gastric ulcer with active bleeding -Ulcer was injected/cauterized -N.p.o., allow for ice chips/sips of water today continue Protonix drip -If no further bleeding can introduce clear liquids, twice daily PPI 03/19 Diabetes mellitus-NIDDM -accucheck with SSI Hypertensive disorder Gastroesophageal reflux disease -Continue home medications renal calculi left adrenal fat containing nodule colonic diverticulosis -Incidental findings on CT Abd/pelvis "Few small nonobstructing bilateral renal calculi not exceeding 3 mm. No other acute intra-abdominal process. Incidentally noted 1.4 cm left adrenal fat containing nodule, suggesting a small myelolipoma. Mild colonic diverticulosis. -Follow up with urology and nephrology outpatient. hyponatremia -Monitor chemistry daily -gentle IVF CAD status post CABG -follow up with outpatient DVT ppx SCD d/t GI bleed full code LOS 2 days Time Spent Managing Pts Care (In Minutes): 35
[2024-03-18] MEDS: NA CHLORIDE 0.9% 1,000 ML IV SCH (14:27)
[2024-03-18 15:41] LABS: Hematocrit 29.3 % (39.6-49.0); Hemoglobin 9.5 g/dL (13.6-17.9)
[2024-03-18 22:39] VITALS: O2SAT 98
[2024-03-19 05:47] LABS: Absolute Eosinophils 0.1 K/uL (0-0.5); Absolute Lymphocytes (CBC) 1.5 K/uL (0.7-4.9); Absolute Monocytes 0.4 K/uL (0.1-1.3); Absolute Neutrophil 5.1 K/uL (1.8-8.0); Basophils % 0.5 % (0-1.3); Eosinophils % 1.3 % (0-4.4); Hematocrit 24.7 % (39.6-49.0); Hemoglobin 8.1 g/dL (13.6-17.9); Lymphocytes % 20.8 % (15.3-44.8); MCH 27.2 pg (27.0-35.0); MCHC 32.7 g/dL (32.0-36.0); MCV 83.1 fL (80-100); MPV 6.7 fL (7.6-11.3); Monocytes % 6.2 % (3.3-12.3); Neutrophils % 71.2 % (41.7-73.7); Nucleated Red Blood Cells % 0.1 % (0-0); Platelets 179 thou/uL (152-406); RBC Red Blood Cell Count 2.97 M/uL (4.33-5.43); Red Cell Distribution Width 16.8 % (12.1-15.2)
[2024-03-19 06:04] LABS: Anion Gap 7.9 mEq/L (5.0-15.0); Magnesium 1.5 mg/dL (1.6-2.4); Phosphorus 2.7 mg/dL (2.5-4.9); Potassium 3.9 mEq/L (3.5-5.1)
[2024-03-19] MEDS: Magnesium Sulfate 2gm IVPB 2 G/50 ML BAG IV ONE (08:29)
[2024-03-19] MEDS: KCL 20 MEQ/100 mL IVPB 20 MEQ/100 ML BAG IV SCH (11:52)
[2024-03-19] MEDS ORDERED: SODIUM CHLORIDE 0.9% 10ML INJ IV PRN (11:57)
[2024-03-19] MEDS: HYDROCODONE/APAP 5/325 MG TAB PO PRN (12:17)
[2024-03-19 14:00] LABS: Hematocrit 25.7 % (39.6-49.0); Hemoglobin 8.4 g/dL (13.6-17.9)
--- NOTE | 2024-03-19 15:05 | P.PN ---
Date of Service: 03/19/24 Subjective: Denies further hematemesis Still having some melena Was able to work with PT today Complains of generalized bodyaches ROS: 10 point ROS as noted above, otherwise negative Physical exam GEN: Alert, oriented, NAD HEENT: Normal conjunctiva, sclera anicteric CV: Regular rate and rhythm, no edema Pulm: Nonlabored respirations on room air ABD: Soft, nontender, nondistended MSK: No joint tenderness Integumentary: No rashes Neuro: Normal speech, normal affect Vitals reviewed Assessment and Plan Upper GI bleed secondary to large bleeding gastric ulcer Acute blood loss anemia -CT abd/pelvis Few small nonobstructing bilateral renal calculi not exceeding 3 mm. No other acute intra-abdominal process. Incidentally noted 1.4 cm left adrenal fat containing nodule, suggesting a small myelolipoma. Mild colonic diverticulosis. -Denies taking blood thinners, has a history of GI several years ago. -transfuse PRN -Continue Protonix IV twice daily -EGD 03/18 shows large gastric ulcer with active bleeding -Ulcer was injected/cauterized -Start liquids today, soft diet tomorrow morning -Monitor H&H closely -If no further bleeding can introduce clear liquids, twice daily PPI 03/19 Diabetes mellitus-NIDDM -accucheck with SSI Hypertensive disorder Gastroesophageal reflux disease -Continue home medications renal calculi left adrenal fat containing nodule colonic diverticulosis -Incidental findings on CT Abd/pelvis "Few small nonobstructing bilateral renal calculi not exceeding 3 mm. No other acute intra-abdominal process. Incidentally noted 1.4 cm left adrenal fat containing nodule, suggesting a small myelolipoma. Mild colonic diverticulosis. -Follow up with urology and nephrology outpatient. hyponatremia -Monitor chemistry daily -gentle IVF CAD status post CABG -follow up with outpatient DVT ppx SCD d/t GI bleed full code LOS 2 days Time Spent Managing Pts Care (In Minutes): 35
[2024-03-19] MEDS: PANTOPRAZOLE 40 MG INJ IVP SCH (23:53)
[2024-03-20 05:57] LABS: Absolute Basophils 0.1 K/uL (0-0.5); Absolute Eosinophils 0.1 K/uL (0-0.5); Absolute Lymphocytes (CBC) 1.4 K/uL (0.7-4.9); Absolute Monocytes 0.5 K/uL (0.1-1.3); Absolute Neutrophil 5.3 K/uL (1.8-8.0); Basophils % 0.8 % (0-1.3); Eosinophils % 1.6 % (0-4.4); Hematocrit 24.5 % (39.6-49.0); Hemoglobin 8.3 g/dL (13.6-17.9); Lymphocytes % 18.7 % (15.3-44.8); MCH 27.7 pg (27.0-35.0); MCHC 33.8 g/dL (32.0-36.0); MPV 6.2 fL (7.6-11.3); Neutrophils % 71.9 % (41.7-73.7); Platelets 193 thou/uL (152-406); RBC Red Blood Cell Count 2.99 M/uL (4.33-5.43); Red Cell Distribution Width 16.8 % (12.1-15.2)
[2024-03-20 06:24] LABS: Anion Gap 8.9 mEq/L (5.0-15.0); Magnesium 1.8 mg/dL (1.6-2.4); Phosphorus 2.6 mg/dL (2.5-4.9); Potassium 3.9 mEq/L (3.5-5.1)
[2024-03-20 12:22] VITALS: BP 136/63; TEMP 96.8
--- NOTE | 2024-03-20 14:24 | P.DS ---
Admission Date: 03/17/24 Discharge Date: 03/20/24 Disposition: ROUTINE DISCHARGE Discharge Condition: GOOD Reason for Admission: GI bleed Consultations: Dr. Christianson GI Procedures: EGD-bleeding duodenal ulcer, gastritis Brief History of Present Illness: Blair Hall is a 73 year old male with PMhx diabetes mellitusNIDDM, GERD, hypertension, CAD status post CABG who presents to the ED with chief complaint of vomiting blood with coffee-ground emesis and bloody stool early this morning. He reports having a GI bleed multiple years ago and denies taking blood thinners. On evaluation, he appears sleepy, tachycardic with soft blood pressure. PPI gtt started in the ED. Hospital Course: Assessment Upper GI bleed secondary to large bleeding duodenal ulcer Acute blood loss anemia Diabetes mellitus-NIDDM Hypertensive disorder Gastroesophageal reflux disease renal calculi left adrenal fat containing nodule Colonic diverticulosis hyponatremia CAD status post CABG Patient was admitted to the hospital for upper GI bleed with coffee-ground emesis and melena. He had a previous GI bleed a number of years ago, does not take any blood thinners at home. He was started on IV PPI and seen by gastroenterology. Endoscopy was performed on 03/18 which showed irregular Z- line, mild diffuse gastritis in the stomach, a single deep acute benign ulcer visualized in the duodenal bulb with a large clot on top that was removed. The ulcer was injected with epinephrine, resolution clip was placed and lesion was c auterized successfully. Patient was maintained on twice daily PPI, hemoglobin stable and he has had no further hematemesis during hospitalization. Patient stable for discharge at this time. Recommend follow-up with Dr. Soriano in 2 weeks. Continue taking PPI as prescribed, prescription sent to pharmacy. He may continue your other home medications as previously prescribed Physical exam GEN: Alert, oriented, NAD HEENT: Normal conjunctiva, sclera anicteric CV: Regular rate and rhythm, no edema Pulm: Nonlabored respirations on room air ABD: Soft, nontender, nondistended MSK: No joint tenderness Integumentary: No rashes Neuro: Normal speech, normal affect Vital Signs/Physical Exam: Temp Pulse Resp BP Pulse Ox 96.8 F 78 17 136/63 98 03/20/24 12:03/20/24 12:03/20/24 12:03/20/24 12:24 12:00 Laboratory Data at Discharge: WBC 7.40 thou/uL (4.3-10.9) 03/20/24 05:42 Hgb 8.3 g/dL (13.6-17.9) L 03/20/24 05:42 Hct 24.5 % (39.6-49.0) L 03/20/24 05:42 Plt Count 193 thou/uL (152-406) 03/20/24 05:42 PT 12.7 SECONDS (9.4-12.5) H 03/17/24 09:08 INR 1.14 03/17/24 09:08 APTT 25.0 SECONDS (24.3-36.9) 03/17/24 09:08 Sodium 132 mEq/L (136-145) L 03/20/24 05:42 Potassium 3.9 mEq/L (3.5-5.1) 03/20/24 05:42 BUN 12 mg/dL (7-18) 03/20/24 05:42 Creatinine 0.99 mg/dL (0.70-1.30) 03/20/24 05:42 Glucose 146 mg/dL (74-106) H 03/20/24 05:42 Phosphorus 2.6 mg/dL (2.5-4.9) 03/20/24 05:42 Magnesium 1.8 mg/dL (1.6-2.4) 03/20/24 05:42 Total Bilirubin 0.6 mg/dL (0.2-1.0) 03/17/24 09:08 AST 16 U/L (15-37) 03/17/24 09:08 ALT 33 U/L (16-61) 03/17/24 09:08 Alkaline Phosphatase 44 U/L (45-117) L 03/17/24 09:08 Triglycerides 312 mg/dL (<150) H 03/18/24 10:29 Cholesterol 106 mg/dL (<200) 03/18/24 10:29 HDL Cholesterol 29 mg/dL (40-60) L 03/18/24 10:29 Cholesterol/HDL Ratio 3.66 03/18/24 10:29 Home Medications: Buspirone HCl 7.5 mg PO BID 03/17/24 Carvedilol [Coreg] 3.125 mg PO BID 03/17/24 Magnesium [Magnesium Gluconate] 200 mg PO BEDTIME 03/17/24 Mesalamine 1.2 gm PO BEDTIME 03/17/24 Metformin HCl 1,000 mg PO BID 03/17/24 Spironolactone 25 mg PO DAILY 03/17/24 Tamsulosin HCl 0.4 mg PO BEDTIME 03/17/24 Telmisartan/Amlodipine [Telmisartan-Amlodipine 40-5 mg] 1 tab PO DAILY 03/17/24 Pantoprazole [Protonix Tab] 40 mg PO BID #60 tab 03/20/24 New Medications: Pantoprazole [Protonix Tab] 40 mg PO BID #60 tab Physician Discharge Instructions: Patient was admitted to the hospital for upper GI bleed with coffee-ground emesis and melena. He had a previous GI bleed a number of years ago, does not take any blood thinners at home. He was started on IV PPI and seen by gastroenterology. Endoscopy was performed on 03/18 which showed irregular Z- line, mild diffuse gastritis in the stomach, a single deep acute benign ulcer visualized in the duodenal bulb with a large clot on top that was removed. The ulcer was injected with epinephrine, resolution clip was placed and lesion was cauterized successfully. Patient was maintained on twice daily PPI, hemoglobin stable and he has had no further hematemesis during hospitalization. Patient stable for discharge at this time. Recommend follow-up with Dr. Soriano in 2 weeks. Continue taking PPI as prescribed, prescription sent to pharmacy. He may continue your other home medications as previously prescribed Diet: [place] Activity: Fall precautions Followup: GIOVANNI HICKMAN [Primary Care Provider] - 1-2 Weeks Peewee Soriano MD [ACTIVE - CAN ADMIT] - 1-2 Weeks Time spent managing pt's care (in minutes): 38
== END 2024-03-20 16:06 | disposition home or self-care (01) | DRG 378 ==
LOC: ER 08:58 → ERHOLD 13:22 → 2ND 16:44
PROVIDERS: ADMIT Internal Medicine; ATTEND Hospitalist
PROC: 0W3P8ZZ Control Bleeding in Gastrointestinal Tract, Via Natural or Artificial Opening Endoscopic (ICD-10-PCS; principal; 2024-03-18 09:15)
DX: K26.0 Acute duodenal ulcer with hemorrhage (principal); D62 Acute posthemorrhagic anemia; E87.1 Hypo-osmolality and hyponatremia; I10 Essential (primary) hypertension; E11.9 Type 2 diabetes mellitus without complications; N20.0 Calculus of kidney; K29.70 Gastritis, unspecified, without bleeding; K57.30 Diverticulosis of large intestine without perforation or abscess without bleeding; K21.9 Gastro-esophageal reflux disease without esophagitis; K25.0 Acute gastric ulcer with hemorrhage; I25.10 Atherosclerotic heart disease of native coronary artery without angina pectoris; Z88.0 Allergy status to penicillin; Z95.1 Presence of aortocoronary bypass graft; Z87.891 Personal history of nicotine dependence
CPT/HCPCS: 36415; 74176; 80048; 80053; 80061; 82947; 83735; 84100; 85014; 85018; 85025; 85610; 85730; 86850; 86870; 86900; 86901; 93005; 96365; 96366; 97116; 97161; 99285; J0171; J2001; J2470; J2704; J3475; J3480; J7030; J7050

== ENCOUNTER 2024-03-22 11:40 | Emergency (ER) | payer OTHER ==
--- OUTSIDE RECORDS SUMMARY | 2024-03-22 11:43 | XMS REPORT | Clinical Summary ---
Author Name Unknown Organization [facility] [place] Address [address] [place] [address] Care Team Providers Care Cryptographer Name Role Phone David Álvarez MD Primary Care Provider [phone] Negrito Mott MD Unavailable [phone] William OCHOA MD, Thomas G Unavailable [phone] Allergies Active Allergy Reactions Criticality Noted Date [...] (40 mg) by mouth. 12/04/2017 Active omega 9-zdo-cap-fish oil (Fish OiL) 1,000 mg (120 mg-180 [...] 10:30 AM CDT Follow-Up [facility] [address] [place] [address], [facility] [place] [address] Jr Thomas III, MD Lower urinary tract symptoms 02/13/2024 Travel 12/05/2023 11:00 AM CDT Consult [facility] [address] [place] [address], 7th [place] [address] Jr Thomas III, MD Lower urinary tract symptoms (Primary Dx); Adenocarcinoma of prostate; Overactive bladder; Urge incontinence; Nocturia 12/05/2023 Travel 10/09/2023 11:33 AM CDT - 10/09/2023 11:59 PM CDT Hospital Encounter [facility] [address] [place] [id number] Phani Hammond PA Adenocarcinoma of prostate Discharge Disposition: Home 10/09/2023 8:17 AM CDT - 10/09/2023 11:32 AM CDT Hospital Encounter [facility] - Radiation Oncology [address] [facility], 7th [place] [address] David Álvarez MD Choi, Seungtaek, MD Adenocarcinoma of prostate (Primary Dx) Discharge Disposition: Home 10/09/2023 8:00 AM CDT Office Visit Genitourinary Cancer [address], [address]th [place] [address] David Álvarez MD Adenocarcinoma of prostate (Primary Dx) 10/09/2023 Orders Only [facility] [address] [place] [address], 7th [place] [address] Phani Hammond PA Adenocarcinoma of prostate (Primary Dx) 10/09/2023 Travel 10/05/2023 9:30 AM CDT NPR MDA PATIENT ACCESS 09/16/2023 8:05 PM MEDICAL RECORDS AUDITOR Ancillary Procedure Image Library [address] [place] [address] David Álvarez MD Cancer 09/16/2023 8:00 PM MEDICAL RECORDS AUDITOR Ancillary Procedure [facility] [address] [place] [address] David Álvarez MD Cancer 09/07/2023 11:45 PM MEDICAL RECORDS AUDITOR Ancillary Procedure Image [facility] [address] [place] [address] David Álvarez MD Cancer 09/07/2023 11:40 PM MEDICAL RECORDS AUDITOR Ancillary Procedure Image [facility] [address] [place] [address] David Álvarez MD Cancer 09/07/2023 11:35 PM MEDICAL RECORDS AUDITOR Ancillary Procedure Image [facility] [address] [place] [address] David Álvarez MD Cancer 09/05/2023 Travel 09/05/2023 Lab Requisition [facility] Fady Quezada MD Putzi, Mathew J, MD after 03/23/2023 Surgical History Surgery Date Site/Laterality Comments CORONARY [...] 11:41 AM CDT Adenocarcinoma of prostate after 03/23/2023 Results * (ABNORMAL) PSA (10/09/2023 11:41 AM CDT) Prostate Specific Antigen 16.1(H) 0.0 - 4.0 ng/mL 10/09/2023 12:33 PM CDT [facility] PSA Indication Diagnostic 10/09/2023 12:33 PM CDT [facility] Blood Peripheral blood specimen / Unknown Venipuncture / Unknown 10/09/2023 11:41 AM CDT 10/09/2023 11:44 AM CDT Narrative [facility] - 10/09/2023 12:33 PM CDT "Reference range established based on adult population Results greater than 4519 ng/mL may not be reliable due to matrix effect with extended dilution as it exceeds the high speed printer operator's recommended limit. Caution should be exercised when interpreting such values and done in conjunction with clinical context. Phani CHOI LAB BLOOD ORDERABLE S [facility] [address] [facility] [place] [address] after 03/23/2023 Care Teams Cryptographer Relationship Specialty Start Date End Date David Álvarez MD [address] [place] [id number] [email or web address] PCP - General Urology 09/05/23 Negrito Mott MD [address] [place] [id number] [email or web address] Consulting Physician Radiation Oncology 10/09/23 Jr Thomas III, MD [address] [place] [address] [id number] [email or web address] Consulting Physician Urology 12/05/23
[2024-03-22] MEDS ORDERED: NA CHLORIDE 0.9% 500 ML ONE ×2 (12:14→14:32)
[2024-03-22 12:59] LABS: Absolute Eosinophils 0.1 K/uL (0-0.5); Absolute Lymphocytes (CBC) 1.2 K/uL (0.7-4.9); Absolute Monocytes 0.4 K/uL (0.1-1.3); Absolute Neutrophil 7.4 K/uL (1.8-8.0); Basophils % 0.4 % (0-1.3); Eosinophils % 1.2 % (0-4.4); Hematocrit 30.5 % (39.6-49.0); Hemoglobin 9.8 g/dL (13.6-17.9); Lymphocytes % 12.9 % (15.3-44.8); MCH 26.8 pg (27.0-35.0); MCHC 32.1 g/dL (32.0-36.0); MCV 83.5 fL (80-100); MPV 7.1 fL (7.6-11.3); Monocytes % 4.7 % (3.3-12.3); Neutrophils % 80.8 % (41.7-73.7); Nucleated RBC Absolute Count 0.1 (0-0); Nucleated Red Blood Cells % 0.5 % (0-0); Platelets 243 thou/uL (152-406); RBC Red Blood Cell Count 3.65 M/uL (4.33-5.43); Red Cell Distribution Width 16.8 % (12.1-15.2)
[2024-03-22 13:01] LABS: PT Prothrombin Time 11.6 SECONDS (9.4-12.5); Protime INR 1.04
--- NOTE | 2024-03-22 13:04 | RAD REPORT ---
EXAM DESCRIPTION: Kilo Single View03/22/2024 12:42 pm CLINICAL HISTORY: Weakness COMPARISON: none FINDINGS: The lungs appear clear of acute infiltrate. The heart is normal size IMPRESSION: No acute abnormalities displayed
[2024-03-22 13:15] LABS: ALT/SGPT 32 U/L (16-61); AST/SGOT 21 U/L (15-37); Albumin 3.6 g/dL (3.4-5.0); Alkaline Phosphatase 56 U/L (45-117); Anion Gap 12.2 mEq/L (5.0-15.0); BUN Blood Urea Nitrogen 16 mg/dL (7-18); Bicarbonate 21 mEq/L (21-32); Bilirubin Direct < 0.2 mg/dL (0-0.2); Bilirubin Indirect, Calculated 0.3 mg/dL (0.2-0.8); Bilirubin Total 0.5 mg/dL (0.2-1.0); Globulin 3.5 g/dL (2.3-3.5); Glomerular Filtration Rate 69 ml/min (=/>90); Glucose Level 135 mg/dL (74-106); Magnesium 1.7 mg/dL (1.6-2.4); Potassium 4.2 mEq/L (3.5-5.1); Protein, Total 7.1 g/dL (6.4-8.2); Sodium Level 133 mEq/L (136-145); Troponin High Sensitivity 4.9 pg/mL (<58.9)
[2024-03-22] MEDS ORDERED: MECLIZINE HCL 12.5 MG TAB ONE (14:32)
--- NOTE | 2024-03-22 15:27 | RAD REPORT ---
EXAM DESCRIPTION: CT - Head Brain Wo Cont - 03/22/2024 2:56 pm CLINICAL HISTORY: Vertigo COMPARISON: None TECHNIQUE: Computed axial tomography of the head was obtained. IV contrast was not requested. All CT scans are performed using dose optimization technique as appropriate and may include automated exposure control or mA/KV adjustment according to patient size. FINDINGS: An intracranial bleed is not seen The ventricles are normal in caliber No extra-axial fluid collection is noted. Mild to moderate cerebral atrophy Mild to moderate low-density areas within periventricular, deep and subcortical white matter likely r epresent ischemic changes secondary to small vessel disease. Fluid within the sinuses/ mastoids is not seen. IMPRESSION: No acute intracranial abnormality is seen If patient's symptoms persist MRI of the brain would be recommended
--- NOTE | 2024-03-22 15:44 | RAD REPORT ---
EXAM DESCRIPTION: CTHead angio03/22/2024 2:56 pm CLINICAL HISTORY: Vertigo COMPARISON: none TECHNIQUE: 100 cc Isovue [address] angiogram of the head was obtained. 3D MIPS reconstruction performed. All CT scans are performed using dose optimization technique as appropriate and may include automated exposure control or mA/KV adjustment according to patient size. 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 Remainder of anterior cerebral, middle cerebral and posterior cerebral arteries unremarkable An aneurysm is not seen IMPRESSION: Occlusion of the proximal basilar artery. This probably is chronic however, no prior exa ms available for comparison
--- NOTE | 2024-03-22 15:45 | RAD REPORT ---
EXAM DESCRIPTION: Javier Angio03/22/2024 2:56 pm CLINICAL HISTORY: Vertigo COMPARISON: None TECHNIQUE: 100 cc Isovue [address] angiogram of the neck was obtained. 3D MIPS reconstruction performed. All CT scans are performed using dose optimization technique as appropriate and may include automated exposure control or mA/KV adjustment according to patient size. FINDINGS: Visualized aortic arch and great vessels unremarkable Calcified plaque left carotid bulb severe. Mild plaque remainder common carotid, internal carotid and external carotid arteries Calcified and noncalcified plaque distal left vertebral artery. Portions of distal artery are occlude d. Occlusion of most of the proximal and mid right vertebral artery. 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 This probably is chronic however, no prio r exams available for comparison Severe plaque left carotid bulb results in an approximately 75% stenosis
--- NOTE | 2024-03-22 16:15 | EDPHYS ---
Physician Documentation [facility] Name: Blair Hall Age: 73 yrs Sex: Male : 1950 Arrival Date: 03/22/2024 Time: 11:40 Bed 7 Private MD: ED Physician Missael Stallings HPI: 03/22 12:27 This 73 yrs old Male presents to ER via Wheelchair with complaints of Low Blood Sugar - rt Bp. 12:27 Patient presents to the ED with dizziness, described as lightheadedness. The patient rt had a recent admission to the hospital for upper GI bleed due to an ulcer. patient states that he felt dizzy while at the hospital, has progressively been getting worse. Denies other acute complaints at this time, symptoms are moderate in severity, no other aggravating elevating factors.. Historical: - Allergies: 12:08 PENICILLINS; ap3 - PMHx: 12:08 diabetes mellitus; Gastroesophageal reflux disease; Hypertensive disorder; ap3 18:36 CVA; hb - PSHx: 12:08 Coronary artery bypass graft; ap3 - Immunization history:: Client reports having NOT received the Covid vaccine. Flu vaccine is up to date. - Infectious Disease History:: Denies. - Social history:: Smoking status: Patient denies any tobacco usage or history of. - Family history:: not pertinent. ROS: 12:27 Constitutional: Negative for fever, chills, and weight loss, Cardiovascular: Negative rt for chest pain, palpitations, and edema, Respiratory: Negative for shortness of breath, cough, wheezing, and pleuritic chest pain, Abdomen/GI: Negative for abdominal pain, nausea, vomiting, diarrhea, and constipation, Skin: Negative for injury, rash, and discoloration, Neuro: Negative for headache, weakness, numbness, tingling, and seizure, 12:27 Neuro: Positive for near syncope, Negative for altered mental status, loss of consciousness, Exam: 12:27 Constitutional: This is a well developed, well nourished patient who is awake, alert, rt and in no acute distress. Head/Face: Normocephalic, atraumatic. Chest/axilla: Normal chest wall appearance and motion. Nontender with no deformity. No lesions are appreciated. Cardiovascular: Regular rate and rhythm with a normal S1 and S2. No gallops, murmurs, or rubs. Normal PMI, no JVD. No pulse deficits. Respiratory: Lungs have equal breath sounds bilaterally, clear to auscultation and percussion. No rales, rhonchi or wheezes noted. No increased work of breathing, no retractions or nasal flaring. Abdomen/GI: Soft, non-tender, with normal bowel sounds. No distension or tympany. No guarding or rebound. No evidence of tenderness throughout. Skin: Warm, dry with normal turgor. Normal color with no rashes, no lesions, and no evidence of cellulitis. MS/ Extremity: Pulses equal, no cyanosis. Neurovascular intact. Full, normal range of motion. Neuro: Awake and alert, GCS 15, oriented to person, place, time, and situation. Cranial nerves II-XII grossly intact. Motor strength 5/5 in all extremities. Sensory grossly intact. Cerebellar exam normal. Normal gait. 12:27 Eyes: Pale conjunctiva. 12:27 ECG was reviewed by the Attending Physician. Vital Signs: 12:03 BP 98 / 69; Pulse 84; Resp 17; Temp 97.2; Pulse Ox 100% on R/A; Weight 106.59 kg; ap3 Height 5 ft. 9 in. ; 14:06 BP 130 / 69; Pulse 73; Resp 16; Pulse Ox 100% ; ko1 17:30 BP 136 / 65; Pulse 72; Resp 16; Pulse Ox 99% ; ko1 19:00 BP 135 / 67; Pulse 89; Resp 18; Pulse Ox 96% ; cp4 20:00 BP 137 / 58; Pulse 87; Resp 18; Pulse Ox 98% ; cp4 21:00 BP 136 / 65; Pulse 72; Resp 18; Pulse Ox 99% ; cp4 22:15 BP 121 / 62; Pulse 81; Resp 18; Pulse Ox 99% ; cp4 12:03 Body Mass Index 34.70 (106.59 kg, 175.26 cm) ap3 NIH Stroke Scale Scores: 12:30 NIHSS Score: 0 ko1 19:10 NIHSS Score: 0 cp4 22:19 NIHSS Score: 0 cp4 MDM: 11:54 Patient medically screened. rt 16:50 Differential diagnosis: Dizziness, vertigo, lightheadedness, symptomatic anemia. Data rt reviewed: vital signs, nurses notes, lab test result(s), EKG, radiologic studies. Consideration of Admission/Observation Patient was admitted/placed on observation. Management of patient was discussed with the following: Hospitalist: Agrees to admit. I considered the following discharge prescriptions or medication management in the emergency department Medications were administered in the Emergency Department. See MAR. Independent interpretation of the following test(s) in the Emergency Department CT Scan: My interpretation is No intracranial hemorrhage seen on interpretation of CT scan images. Care significantly affected by the following chronic conditions: Diabetes. Counseling: I had a detailed discussion with the patient and/or guardian regarding the historical points, exam findings, and any diagnostic results supporting the discharge/admit diagnosis, lab results, radiology results, the need for further work-up and treatment in the hospital. Response to treatment: There is no appreciated change of the patient's symptoms at this time. 19:45 ED course: After evaluation and discussion with neurology, they request transfer, rt discussed with neurologist, hospitalist at [facility], patient accepted in transfer. 03/22 12:01 Order name: Basic Metabolic Panel; Complete Time: 13:43 rt 03/22 12:01 Order name: CBC with Diff; Complete Time: 13:02 rt 03/22 12:01 Order name: LFT's; Complete Time: 13:43 rt 03/22 12:01 Order name: Magnesium; Complete Time: 13:43 rt 03/22 12:01 Order name: PT-INR; Complete Time: 13:02 rt 03/22 12:01 Order name: Troponin HS; Complete Time: 13:43 rt 03/22 12:01 Order name: Type And Screen rt 03/22 15:00 Order name: Antibody Identification EDMS 03/22 12:01 Order name: XRAY Chest (1 view); Complete Time: 13:06 rt 03/22 14:17 Order name: CT Head Brain wo Cont; Complete Time: 15:45 rt 03/22 14:17 Order name: CT Neck Angio; Complete Time: 15:45 rt 03/22 14:25 Order name: Head angio; Complete Time: 15:45 EDMS 03/22 12:01 Order name: Cardiac monitoring; Complete Time: 12:29 rt 03/22 12:01 Order name: EKG - Nurse/Tech; Complete Time: 12:29 rt 03/22 12:01 Order name: IV Saline Lock; Complete Time: 13:27 rt 03/22 12:01 Order name: Labs collected and sent; Complete Time: 13: rt 03/22 12:01 Order name: O2 Per Protocol; Complete Time: 12:30 rt 03/22 12:01 Order name: O2 Sat Monitoring; Complete Time: 12:30 rt 03/22 13:21 Order name: Labs - recollect needed: recollect T\T\S tube short; Complete Time: 13: eb EC: Rate is 84 beats/min. Rhythm is regular, Normal Sinus Rhythm with No ectopy. QRS [place] rt is Normal. MS interval is normal. QRS interval is normal. QT interval is normal. No Q waves. T waves are Normal. No ST changes noted. Interpreted by me. Administered Medications: : Drug: NS 0.9% IV 500 ml IV at bolus once Route: IV; Rate: bolus; Site: right forearm; ko1 14:36 Drug: Meclizine PO 50 mg PO once Route: PO; rs5 14:36 Drug: NS 0.9% IV 500 ml IV at bolus once Route: IV; Rate: bolus; Site: right forearm; rs5 Disposition Summary: 03/22/24 17:55 Transfer Ordered Notes: Transfer Location: [facility] rt Reason: Higher level of care rt Condition: Stable(03/22/24 17:55) rt Problem: new(03/22/24 17:55) rt Symptoms: have improved(03/22/24 17:55) rt Accepting Physician: (03/22/24 22:25) cp4 Diagnosis - Vertigo rt - Vertebral artery occlusion rt Forms: - Medication Reconciliation Form rt - SBAR form rt NIH Stroke Scale - NIH Stroke Score Date: 03/22/2024 Time: 12:30 Total Score = 0 10. Dysarthria (speech clarity - read or repeat words) - 0(Normal) 11. Extinction and Inattention (visual/tactile/auditory/spatial/personal) - 0(No abnormality) 1a. Level of Consciousness (LOC) - 0(Alert) 1b. Level of Consciousness (LOC) (Month \T\ Age) - 0(Both) 1c. LOC Commands (Open \T\ Closes Eyes/Consumer Relations Complaint Clerk) - 0(Both) 2. Best Gaze (Lateral Gaze Paresis) - 0(Normal) 3. Visual Field Loss - 0(No visual loss) 4. Facial Palsy - 0(Normal) 5a. Left Arm: Motor (10-second hold) - 0(No drift) 5b. Right Arm: Motor (10-second hold) - 0(No drift) 6a. Left Leg: Motor (5-second hold - always test supine) - 0(No drift) 6b. Right Leg: Motor (5-second hold - always test supine) - 0(No drift) 7. Limb Ataxia (finger/nose \T\ heel/perez - test with eyes open) - 0(Absent) 8. Sensory Loss (pinprick arms/legs/face) - 0(Normal) 9. Best Language: Aphasia (description/naming/reading) - 0(No aphasia) Initials: ko1 NIH Stroke Scale - NIH Stroke Score Date: 03/22/2024 Time: 19:10 Total Score = 0 10. Dysarthria (speech clarity - read or repeat words) - 0(Normal) 11. Extinction and Inattention (visual/tactile/auditory/spatial/personal) - 0(No abnormality) 1a. Level of Consciousness (LOC) - 0(Alert) 1b. Level of Consciousness (LOC) (Month \T\ Age) - 0(Both) 1c. LOC Commands (Open \T\ Closes Eyes/Consumer Relations Complaint Clerk) - 0(Both) 2. Best Gaze (Lateral Gaze Paresis) - 0(Normal) 3. Visual Field Loss - 0(No visual loss) 4. Facial Palsy - 0(Normal) 5a. Left Arm: Motor (10-second hold) - 0(No drift) 5b. Right Arm: Motor (10-second hold) - 0(No drift) 6a. Left Leg: Motor (5-second hold - always test supine) - 0(No drift) 6b. Right Leg: Motor (5-second hold - always test supine) - 0(No drift) 7. Limb Ataxia (finger/nose \T\ heel/perez - test with eyes open) - 0(Absent) 8. Sensory Loss (pinprick arms/legs/face) - 0(Normal) 9. Best Language: Aphasia (description/naming/reading) - 0(No aphasia) Initials: cp4 NIH Stroke Scale - NIH Stroke Score Date: 03/22/2024 Time: 22:19 Total Score = 0 10. Dysarthria (speech clarity - read or repeat words) - 0(Normal) 11. Extinction and Inattention (visual/tactile/auditory/spatial/personal) - 0(No abnormality) 1a. Level of Consciousness (LOC) - 0(Alert) 1b. Level of Consciousness (LOC) (Month \T\ Age) - 0(Both) 1c. LOC Commands (Open \T\ Closes Eyes/Consumer Relations Complaint Clerk) - 0(Both) 2. Best Gaze (Lateral Gaze Paresis) - 0(Normal) 3. Visual Field Loss - 0(No visual loss) 4. Facial Palsy - 0(Normal) 5a. Left Arm: Motor (10-second hold) - 0(No drift) 5b. Right Arm: Motor (10-second hold) - 0(No drift) 6a. Left Leg: Motor (5-second hold - always test supine) - 0(No drift) 6b. Right Leg: Motor (5-second hold - always test supine) - 0(No drift) 7. Limb Ataxia (finger/nose \T\ heel/perez - test with eyes open) - 0(Absent) 8. Sensory Loss (pinprick arms/legs/face) - 0(Normal) 9. Best Language: Aphasia (description/naming/reading) - 0(No aphasia) Initials: cp4 Signatures: Dispatcher [employer] EDMS Casi Quigley RN RN Savannah Maldonado RN RN ap3 Machelle Curiel Kathy, RN RN ko1 Missael Stallings MD MD rt Ronald Ramirez RN RN rs5 Kianna Pandey cp4 Corrections: (The following items were deleted from the chart) 12: 12:01 BASIC METABOLIC PANEL+C.LAB.BRZ ordered. EDMS EDMS 12: 12:01 CBC+H.LAB.BRZ ordered. EDMS EDMS 12: 12:01 HEPATIC FUNCTION+C.LAB.BRZ ordered. EDMS EDMS 12:01 12:01 MAGNESIUM+C.LAB.BRZ ordered. EDMS EDMS 12: 12:01 PROTIME (+INR)+COAG.LAB.BRZ ordered. EDMS EDMS 12:01 12:01 Troponin High Sensitivity+C.LAB.BRZ ordered. EDMS EDMS 12:01 12:01 TYPE AND SCREEN+BB.LAB.BRZ ordered. EDMS EDMS 12:01 12:01 Chest Single View+RAD.RAD.BRZ ordered. EDMS EDMS 17:55 16:14 Observation rt rt 17: 16:14 Kan Sylvester rt rt 17: 16:14 Telemetry/MedSurg (observation) rt rt 17: 16:14 Stable rt rt 17: 16:14 new rt rt 17: 16:14 are unchanged rt rt : 16:14 Standard rt rt 17: 16:14 rt rt 17: 16:14 Vertigo rt rt 17: 16:14 Near syncope rt rt 22: 17:55 Dr. rt cp4
--- NOTE | 2024-03-22 16:15 | ER ---
Nurse's Notes [facility] Name: Blair Hall Age: 73 yrs Sex: Male : 1950 Arrival Date: 03/22/2024 Time: 11:40 Bed 7 Private MD: Diagnosis: Vertigo;Vertebral artery occlusion Presentation: 03/22 12:03 Chief complaint: Patient states: he has been feeling increasingly weak since his ap3 discharge from the hospital on 03/19/24. patient reports dizziness and weakness. Coronavirus screen: At this time, the client does not indicate any symptoms associated with coronavirus-19. Ebola Screen: No symptoms or risks identified at this time. Initial Sepsis Screen: Does the patient meet any 2 criteria? No. Patient's initial sepsis screen is negative. Does the patient have a suspected source of infection? No. Patient's initial sepsis screen is negative. Risk Assessment: Do you want to hurt yourself or someone else? Patient reports no desire to harm self or others. Onset of symptoms is unknown. 12:03 Method Of Arrival: Wheelchair ap3 12:03 Acuity: DESHAUN 3 ap3 Triage Assessment: 12:08 General: Appears distressed, Behavior is calm, cooperative, appropriate for age. Pain: ap3 Denies pain. Neuro: Level of Consciousness is awake, alert, obeys commands, Gait is weak. Reports dizziness, weakness. Cardiovascular: Patient's skin is warm and dry. Respiratory: Airway is patent Respiratory effort is even, unlabored, Respiratory pattern is regular, symmetrical. Historical: - Allergies: 12:08 PENICILLINS; ap3 - PMHx: 12:08 diabetes mellitus; Gastroesophageal reflux disease; Hypertensive disorder; ap3 18:36 CVA; hb - PSHx: 12:08 Coronary artery bypass graft; ap3 - Immunization history:: Client reports having NOT received the Covid vaccine. Flu vaccine is up to date. - Infectious Disease History:: Denies. - Social history:: Smoking status: Patient denies any tobacco usage or history of. - Family history:: not pertinent. Screenin:09 Abuse screen: Denies threats or abuse. Nutritional screening: No deficits noted. ap3 Tuberculosis screening: No symptoms or risk factors identified. 17:30 [facility] ED Fall Risk Assessment (Adult) History of falling in the last 3 months, ko1 including since admission No falls in past 3 months (0 pts) Confusion or Disorientation No (0 pts) Intoxicated or Sedated No (0 pts) Impaired Gait No (0 pts) Mobility Assist Device Used No (0 pt) Altered Elimination No (0 pt) Score/Fall Risk Level 0 - 2 = Low Risk Oriented to surroundings, Maintained a safe environment, Educated pt \T\ family on fall prevention, incl call for assistance when getting out of bed, Assessed \T\ reinforced patient's understanding of fall precautions, Provided non-skid footwear, Hourly rounding (assess needs \T\ fall precautionary measures) done, Used ambulatory aids as needed (educated on \T\ assisted with). Assessment: 19:10 General: Appears in no apparent distress. comfortable, Behavior is calm, cooperative, cp4 appropriate for age. 20:00 Reassessment: Patient appears in no apparent distress at this time. Patient and/or cp4 family updated on plan of care and expected duration. Pain level reassessed. Patient is alert, oriented x 3, equal unlabored respirations, skin warm/dry/pink. Pain: Denies pain. Neuro: Level of Consciousness is awake, alert, obeys commands, Oriented to person, place, time, situation. Cardiovascular: Rhythm is sinus rhythm. Respiratory: Airway is patent Respiratory effort is even, unlabored. Respiratory:. GI: No signs and/or symptoms were reported involving the gastrointestinal system. : No signs and/or symptoms were reported regarding the genitourinary system. EENT: No signs and/or symptoms were reported regarding the EENT system. Derm: No signs and/or symptoms reported regarding the dermatologic system. Musculoskeletal: No signs and/or symptoms reported regarding the musculoskeletal system. 21:00 Reassessment: Patient appears in no apparent distress at this time. Patient and/or cp4 family updated on plan of care and expected duration. Pain level reassessed. Patient is alert, oriented x 3, equal unlabored respirations, skin warm/dry/pink. 22:00 Reassessment: Patient appears in no apparent distress at this time. Patient and/or cp4 family updated on plan of care and expected duration. Pain level reassessed. Patient is alert, oriented x 3, equal unlabored respirations, skin warm/dry/pink. Vital Signs: 12:03 BP 98 / 69; Pulse 84; Resp 17; Temp 97.2; Pulse Ox 100% on R/A; Weight 106.59 kg; ap3 Height 5 ft. 9 in. ; 14:06 BP 130 / 69; Pulse 73; Resp 16; Pulse Ox 100% ; ko1 17:30 BP 136 / 65; Pulse 72; Resp 16; Pulse Ox 99% ; ko1 19:00 BP 135 / 67; Pulse 89; Resp 18; Pulse Ox 96% ; cp4 20:00 BP 137 / 58; Pulse 87; Resp 18; Pulse Ox 98% ; cp4 21:00 BP 136 / 65; Pulse 72; Resp 18; Pulse Ox 99% ; cp4 22:15 BP 121 / 62; Pulse 81; Resp 18; Pulse Ox 99% ; cp4 12:03 Body Mass Index 34.70 (106.59 kg, 175.26 cm) ap3 NIH Stroke Scale Scores: 12:30 NIHSS Score: 0 ko1 19:10 NIHSS Score: 0 cp4 22:19 NIHSS Score: 0 cp4 ED Course: 11:42 Patient arrived in ED. mg5 11:49 Missael Stallings MD is Attending Physician. rt 11:56 Ronald Ramirez, ALLISON is Primary Nurse. rs5 12:08 Triage completed. ap3 12:09 Arm band placed on right wrist. ap3 12:44 XRAY Chest (1 view) In Process Unspecified. EDMS 13:31 Type And Screen Sent. ko1 14:58 CT Head Brain wo Cont In Process Unspecified. EDMS 14:58 CT Neck Angio In Process Unspecified. EDMS 14:58 Head angio In Process Unspecified. EDMS 16:14 Kan Sylvester MD is Hospitalizing Provider. rt 17:30 Patient has correct armband on for positive identification. Placed in gown. Bed in low ko1 position. Call light in reach. Side rails up X2. Provided Education on: call light and labs. Client placed on continuous cardiac and pulse oximetry monitoring. NIBP monitoring applied. monitoring engineer on. Door closed. Noise minimized. Lights dimmed. Warm blanket given. 17:30 No provider procedures requiring assistance completed. ko1 17:57 initiated a transfer with JEANETTE Diaz from the [facility]. eb 18:[address] Vinod Soriano the neuro risk control officer for [facility] with Dr. Haylie mario for patient transfer consultation. 18:13 per JJ from the transfer center he is still waiting for the hospitalist risk control officer for [facility] to call him back / he will call us back. 18:[address] Li the hospitalist risk control officer for [facility] with Dr. Haylie mario for patient transfer consultation. 20:37 pt was accepted to [facility] room 2247, by Dr. Fernandez, S \T\ 1828. AOC given by Lola isaacs Nash \T\ 2027. Facesheet faxed \T. Number for nurse to nurse report [phone]. [facility] to transfer pt LJ ems out on current transfer. 22:23 Patient transferred, IV remains in place. cp4 Administered Medications: 13:27 Drug: NS 0.9% IV 500 ml IV at bolus once Route: IV; Rate: bolus; Site: right forearm; ko1 14:36 Drug: Meclizine PO 50 mg PO once Route: PO; rs5 14:36 Drug: NS 0.9% IV 500 ml IV at bolus once Route: IV; Rate: bolus; Site: right forearm; rs5 Medication: 17:30 VIS not applicable for this client. ko1 Outcome: 16:14 Decision to Hospitalize by Provider. rt 17:55 ER care complete, transfer ordered by MD. rt 22:23 Transferred by ground EMS to [facility], Transfer form completed. cp4 X-rays sent w/ patient. 22:23 Condition: stable 22:23 Instructed on the need for transfer, 22:25 Patient left the ED. cp4 NIH Stroke Scale - NIH Stroke Score Date: 03/22/2024 Time: 12:30 Total Score = 0 10. Dysarthria (speech clarity - read or repeat words) - 0(Normal) 11. Extinction and Inattention (visual/tactile/auditory/spatial/personal) - 0(No abnormality) 1a. Level of Consciousness (LOC) - 0(Alert) 1b. Level of Consciousness (LOC) (Month \T\ Age) - 0(Both) 1c. LOC Commands (Open \T\ Closes Eyes/Label Stamper) - 0(Both) 2. Best Gaze (Lateral Gaze Paresis) - 0(Normal) 3. Visual Field Loss - 0(No visual loss) 4. Facial Palsy - 0(Normal) 5a. Left Arm: Motor (10-second hold) - 0(No drift) 5b. Right Arm: Motor (10-second hold) - 0(No drift) 6a. Left Leg: Motor (5-second hold - always test supine) - 0(No drift) 6b. Right Leg: Motor (5-second hold - always test supine) - 0(No drift) 7. Limb Ataxia (finger/nose \T\ heel/perez - test with eyes open) - 0(Absent) 8. Sensory Loss (pinprick arms/legs/face) - 0(Normal) 9. Best Language: Aphasia (description/naming/reading) - 0(No aphasia) Initials: ko1 NIH Stroke Scale - NIH Stroke Score Date: 03/22/2024 Time: 19:10 Total Score = 0 10. Dysarthria (speech clarity - read or repeat words) - 0(Normal) 11. Extinction and Inattention (visual/tactile/auditory/spatial/personal) - 0(No abnormality) 1a. Level of Consciousness (LOC) - 0(Alert) 1b. Level of Consciousness (LOC) (Month \T\ Age) - 0(Both) 1c. LOC Commands (Open \T\ Closes Eyes/Label Stamper) - 0(Both) 2. Best Gaze (Lateral Gaze Paresis) - 0(Normal) 3. Visual Field Loss - 0(No visual loss) 4. Facial Palsy - 0(Normal) 5a. Left Arm: Motor (10-second hold) - 0(No drift) 5b. Right Arm: Motor (10-second hold) - 0(No drift) 6a. Left Leg: Motor (5-second hold - always test supine) - 0(No drift) 6b. Right Leg: Motor (5-second hold - always test supine) - 0(No drift) 7. Limb Ataxia (finger/nose \T\ heel/perez - test with eyes open) - 0(Absent) 8. Sensory Loss (pinprick arms/legs/face) - 0(Normal) 9. Best Language: Aphasia (description/naming/reading) - 0(No aphasia) Initials: cp4 NIH Stroke Scale - NIH Stroke Score Date: 03/22/2024 Time: 22:19 Total Score = 0 10. Dysarthria (speech clarity - read or repeat words) - 0(Normal) 11. Extinction and Inattention (visual/tactile/auditory/spatial/personal) - 0(No abnormality) 1a. Level of Consciousness (LOC) - 0(Alert) 1b. Level of Consciousness (LOC) (Month \T\ Age) - 0(Both) 1c. LOC Commands (Open \T\ Closes Eyes/Label Stamper) - 0(Both) 2. Best Gaze (Lateral Gaze Paresis) - 0(Normal) 3. Visual Field Loss - 0(No visual loss) 4. Facial Palsy - 0(Normal) 5a. Left Arm: Motor (10-second hold) - 0(No drift) 5b. Right Arm: Motor (10-second hold) - 0(No drift) 6a. Left Leg: Motor (5-second hold - always test supine) - 0(No drift) 6b. Right Leg: Motor (5-second hold - always test supine) - 0(No drift) 7. Limb Ataxia (finger/nose \T\ heel/perez - test with eyes open) - 0(Absent) 8. Sensory Loss (pinprick arms/legs/face) - 0(Normal) 9. Best Language: Aphasia (description/naming/reading) - 0(No aphasia) Initials: cp4 Signatures: Dispatcher [employer] Casi Patterson, RN ALLISON Savannah Maldonado RN RN ap3 Machelle Curiel Kathy, RN RN ko1 Missael Stallings MD MD rt Sotelo, Ricky RN RN 5 Kenzie Capps Kianna Hanna 4 Barbara Pimentel [facility]
--- NOTE | 2024-03-22 17:33 | P.CNS ---
Date of Consult: 03/22/24 Reason for Consult: Dizziness Chief Complaint: Dizziness, headache History of Present Illness: Patient is a 73-year-old male with a past medical history of HTN, HLD, DMII, carotid endarterectomy 6 months ago, hx of hemorrhagic CVA in 2017, reported vertebral occlusions of an unknown degree,who presents to the ED with worsening dizziness and headache. He reports that over the past 2 days his dizziness has worsened, occurring constantly described as an unsteady, room spinning sensation and is now accompanied with headaches. Headaches have progressed to occurring persistently over the past 24 hours, described as pulsating in quality located at right temporal region. He denies experiencing persistent headache and dizziness in the past. Patient states he is not on any anticoagulation at home. Of note, patient was recently hospitalized for upper GI bleed and discharged home on 03/20. Imaging obtained in ED as below. CT head 03/22:"No acute intracranial abnormality is seen." CTA head 03/22: "Occlusion of the proximal basilar artery. This probably is chronic however, no prior exams available for comparison" CTA neck 03/22: "Occlusion of portions of right and left vertebral arteries. This probably is chronic however, no prior exams available for comparison. Severe plaque left carotid bulb results in an approximately 75% stenosis" Home medications list reviewed: Yes - Past Medical/Surgical History Diabetic: Yes -: HTN -: HLD -: CAD -: Hx hemorrhagic CVA 2016 -: Carotid endarterectomy ~August 2023 -: Diabetes mellitus -: Prostate cancer diagnosed 2022, has not yet started treatment - Social History Smoking Status: Former smoker Alcohol use: No CD- Drugs: No Place of Residence: Home <Lesley Atkins - Last Filed: 03/22/24 20:21> - Past Medical/Surgical History -: CEA (2017) <Kan Sylvester - Last Filed: 03/22/24 21:56> Allergies Penicillins Allergy (Verified 03/17/24 16:42) Itching/Hives/Rash Home Medications: Buspirone HCl 7.5 mg PO BID 03/17/24 Carvedilol [Coreg] 3.125 mg PO BID 03/17/24 Magnesium [Magnesium Gluconate] 200 mg PO BEDTIME 03/17/24 Mesalamine 1.2 gm PO BEDTIME 03/17/24 Metformin HCl 1,000 mg PO BID 03/17/24 Spironolactone 25 mg PO DAILY 03/17/24 Tamsulosin HCl 0.4 mg PO BEDTIME 03/17/24 Telmisartan/Amlodipine [Telmisartan-Amlodipine 40-5 mg] 1 tab PO DAILY 03/17/24 Pantoprazole [Protonix Tab] 40 mg PO BID #60 tab 03/20/24 Review of Systems 10-point ROS is otherwise unremarkable Neurological: Other (Dizziness, headache) <Lesley Atkins - Last Filed: 03/22/24 20:21> Physical Examination General: Alert, In no apparent distress, Oriented x3 HEENT: Atraumatic, Normocephalic, PERRLA, Mucous membr. moist/pink, Sclerae nonicteric Neck: Supple Respiratory: Clear to auscultation bilaterally, Normal air movement Cardiovascular: No edema, Normal pulses, Regular rate/rhythm Gastrointestinal: Normal bowel sounds, Soft and benign Musculoskeletal: No clubbing, No swelling Integumentary: No rashes, No breakdown Neurological: Normal speech, Normal strength at 5/5 x4 extr Laboratory Data (last 24 hrs) 03/22/24 03/22/24 03/22/24 12:45 12:45 12:45 WBC 9.20 Hgb 9.8 L Hct 30.5 L Plt Count 243 PT 11.6 INR 1.04 Sodium 133 L Potassium 4.2 BUN 16 Creatinine 1.12 Glucose 135 H Magnesium 1.7 Total Bilirubin 0.5 AST 21 ALT 32 Alkaline Phosphatase 56 Imagings Data: --CT head 03/22:"No acute intracranial abnormality is seen." --CTA head 03/22: "Occlusion of the proximal basilar artery. This probably is chronic however, no prior exams available for comparison" --CTA neck 03/22: "Occlusion of portions of right and left vertebral arteries. This probably is chronic however, no prior exams available for comparison. 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 CT findings of vertebral and basilar occlusions would fit current symptoms of worsening nausea, dizziness, headache especially without any other identifiable or obvious cause of the symptoms. Since we do not have prior imaging for comparison and cannot rule out acute progression, the case was discussed with Neurologist Dr. Hicks over the phone who recommended transfer to higher level of care to evaluate for possible procedural intervention vs optimal medical management in the setting of recent GI bleed. Time Spent Managing Pts Care (In Minutes): 75 <Lesley Atkins - Last Filed: 03/22/24 20:21> Conclusions/Impression: Reviewed with OPERATOR SUPPLY Milly. Patient presenting with worsened / persistent dizziness, associated pulsating headache, and nausea since home after recent discharge. Imaging done in ED noted occlusion of proximal basilar artery, b/l vertebral arteries, and labwork at ~baseline, no other obvious / identifiable cause of the symptoms. Daughter reported recent carotid endartectomy at which time they were told he had b/l vertebral artery occlusions. No report/imaging available. Unable to compare / rule out progression/change. Progressive changes involving these arteries could explain his symptoms. Discussed with Dr. Hicks who agreed, patient should be further evaluated in a tertiary care center if procdural intervention would be warranted. Discussed with ED Attending, who stated will initiate transfer. <Kan Sylvester - Last Filed: 03/22/24 21:56>
[2024-03-22 22:30] VITALS: TEMP 97.2
[2024-03-22 22:36] VITALS: O2SAT 99
[2024-03-22 22:37] VITALS: BP 121/62
--- NOTE | 2024-03-25 12:46 | EKG ---
Test Date: 2024-03-22 Test Time: 12:18:18 Marketing Administrative Assistant: SAUNDRA MEASUREMENT RESULTS: Intervals: Rate: 84 DE: 160 QRSD: 92 QT: 356 QTc: 420 [facility]: P: 24 DE: 160 QRS: 72 T: 39 INTERPRETIVE STATEMENTS: Normal sinus rhythm Low voltage QRS Borderline ECG Compared to ECG 03/17/2024 09:12:11 Low QRS voltage now present Sinus tachycardia no longer present Atrial premature complex(es) no longer present Electronically Signed On 03-25-24 12:41:11 CDT by Keven Scott
== END 2024-03-22 22:25 | disposition short-term general hospital (02) ==
LOC: ER 11:40
DX: I65.03 Occlusion and stenosis of bilateral vertebral arteries (principal); I10 Essential (primary) hypertension; E11.9 Type 2 diabetes mellitus without complications; Z86.73 Personal history of transient ischemic attack (TIA), and cerebral infarction without residual deficits; Z95.1 Presence of aortocoronary bypass graft; Z87.891 Personal history of nicotine dependence
CPT/HCPCS: 93005; 85025; 80048; 36415; 86900; 83735; 86850; 85610; 86870; 86901; 80076; 84484; 70450; 70496; 70498; 71045; 99285; Q9967; J8597; J7040 ×2

== ENCOUNTER 2024-10-16 07:24 | Day surgery (SDC) | payer OTHER ==
[2024-10-13 14:04] LABS: Absolute Basophils 0.1 K/uL (0-0.5); Absolute Eosinophils 0.2 K/uL (0-0.5); Absolute Lymphocytes (CBC) 1.5 K/uL (0.7-4.9); Absolute Monocytes 0.5 K/uL (0.1-1.3); Absolute Neutrophil 5.3 K/uL (1.8-8.0); Basophils % 0.9 % (0-1.3); Eosinophils % 2.4 % (0-4.4); Hematocrit 34.8 % (39.6-49.0); Hemoglobin 12.3 g/dL (13.6-17.9); Lymphocytes % 19.8 % (15.3-44.8); MCH 29.4 pg (27.0-35.0); MCHC 35.4 g/dL (32.0-36.0); MCV 83.1 fL (80-100); Monocytes % 6.1 % (3.3-12.3); Neutrophils % 70.8 % (41.7-73.7); Platelets 196 thou/uL (152-406); RBC Red Blood Cell Count 4.19 M/uL (4.33-5.43)
[2024-10-13 14:22] LABS: Anion Gap 11.2 mEq/L (5.0-15.0); Potassium 4.2 mEq/L (3.5-5.1)
[2024-10-16] MEDS: NA CHLORIDE 0.9% 1,000 ML ONE (08:15)
[2024-10-16] MEDS ORDERED: LIDOCAINE 1% MPF 5 ML VIAL ONE (08:31)
[2024-10-16] MEDS ORDERED: propofoL 200 MG/20 ML VIAL IV ONE (08:31)
--- NOTE | 2024-10-16 08:49 | EKG ---
Test Date: 2024-10-13 Test Time: 13:44:58 Mica Paster: CHINYERE MEASUREMENT RESULTS: Intervals: Rate: 95 KS: 182 QRSD: 96 QT: 346 QTc: 434 [place]: P: 38 KS: 182 QRS: 70 T: 30 INTERPRETIVE STATEMENTS: Sinus rhythm with occasional premature ventricular complexes Otherwise normal ECG Compared to ECG 03/22/2024 12:18:18 Ventricular premature complex(es) now present Electronically Signed On 10-16-24 08:40:36 CDT by Keven Scott
[2024-10-16 10:57] VITALS: BP 121/66; TEMP 97.7; O2SAT 100
== END 2024-10-16 09:45 | disposition home or self-care (01) ==
LOC: OR 07:24
PROVIDERS: ATTEND Internal Medicine Gastroenterology
PROC: 0DBL8ZX Excision of Transverse Colon, Via Natural or Artificial Opening Endoscopic, Diagnostic (ICD-10-PCS; 2024-10-16)
PROC: 0DBK8ZX Excision of Ascending Colon, Via Natural or Artificial Opening Endoscopic, Diagnostic (ICD-10-PCS; principal; 2024-10-16 08:30)
DX: K59.1 Functional diarrhea (principal); Z86.0100 Personal history of colon polyps, unspecified; K57.30 Diverticulosis of large intestine without perforation or abscess without bleeding; K64.8 Other hemorrhoids; K62.89 Other specified diseases of anus and rectum; D12.3 Benign neoplasm of transverse colon; K63.5 Polyp of colon
CPT/HCPCS: 36415; 80048; 82947; 85025; 88305; 93005; J2003; J2704; J7030

== ENCOUNTER 2024-10-28 06:59 | Day surgery (SDC) | payer OTHER ==
[2024-10-17 11:42] LABS: PT Prothrombin Time 11.8 SECONDS (10-13.0); Protime INR 1.04
[2024-10-28] MEDS ORDERED: NA CHLORIDE 0.9% 1,000 ML ONE (07:17)
[2024-10-28] MEDS ORDERED: ONDANSETRON 4 MG/2 ML VIAL ONE (08:31)
[2024-10-28] MEDS ORDERED: LIDOCAINE 1% MPF 5 ML VIAL ONE (08:31)
[2024-10-28] MEDS ORDERED: KETOROLAC 30 MG/ML INJ ONE (08:31)
[2024-10-28] MEDS ORDERED: propofoL 200 MG/20 ML VIAL IV ONE ×2 (08:31→09:26)
[2024-10-28] MEDS ORDERED: FENTANYL CITR 100 MCG/2 ML ONE (08:33)
[2024-10-28] MEDS: CEFAZOLIN SODIUM 2 GM/VIAL ONE (08:55)
[2024-10-28 09:52] VITALS: O2SAT 100
[2024-10-28] MEDS ORDERED: NA CHLORIDE 0.9% 500 ML ONE (10:31)
[2024-10-28 11:16] VITALS: BP 138/66; TEMP 98.3
[2024-10-28] MEDS ORDERED: CODEINE 30MG/APAP 300MG TAB ONE (12:34)
[2024-10-28] MEDS: CODEINE 30MG/APAP 300MG TAB PO PRN (12:40)
--- NOTE | 2024-10-28 20:08 | OP ---
Date of Procedure: 10/28/2024 Surgeon: NAA SIFUENTES Preoperative Diagnoses: 1. Unfavorable intermediate risk prostate cancer. 2. Benign prostatic hypertrophy with lower urinary tract obstruction and symptoms. Postoperative Diagnoses: 1. Unfavorable intermediate risk prostate cancer. 2. Benign prostatic hypertrophy with lower urinary tract obstruction and symptoms. Principle Procedures: 1. Transrectal ultrasound-guided instillation or insertion of SpaceOAR gel. 2. Prostatic urethral lift with 6 implants placed. Indication For Procedure: Mr. Hall presented to the [facility] referred with unfavorable intermed iate risk prostate cancer, grade group 2, with PSA above 10. He underwent evaluation because of the presence of some obstructive urinary symptoms that were being treated with Flomax and yet remained mo derate, and he elected to proceed with the prostatic urethral lift placed at the time of the SpaceOAR gel insertion in order to improve his urinary symptoms and advance of radiation therapy, but also to act as fiducial markers. Procedure In Detail: The patient was consented in the preoperative holding area before being transfe rred to the operative suite, where general anesthesia was induced. He was given Ancef 2 g IV antimic robial prophylaxis, and Pneumo boots were provided for DVT prophylaxis. He was placed in the lithoto my position, padded and secured to the table appropriately. The transrectal ultrasound probe was jolie eusebio via his anus into his rectum and the prostate and seminal vesicles all the way to the bladder nec k were visualized. Visualization was performed in axial and sagittal dimensions, and a nice stripe o f prerectal fat was observed. I thus on sagittal imaging observed placement of the SpaceOAR injectio n needle and navigated the tip of the needle via the perineum into the prerectal fat space navigating the needle over the rectal hop and directing it all the way to the mid base of the prostate. I conf irmed the localization in axial as well as sagittal dimensions. With the needle tip in the midline a nd well within the prerectal fat pad, I aspirated and received no blood or succus. I then injected a bolus of saline and it did nicely diffuse in the prerectal fat space as expected creating a brief bu ffer between the rectum and the peripheral zone of the prostate. As a result, I then the s yringe containing saline and connected the SpaceOAR gel components to the needle. I then injected th e gel components under ultrasound visualization and observed the gel nicely delineate and separate th e prostate from the rectum symmetrically across the peripheral zone and from base to apex as evidence d in both axial and then subsequent sagittal imaging. I then removed the needle under ultrasound vis ualization and took the patient out of the high-lithotomy position and placed him in the low-lithotom y position. The patient's genitalia were then prepped with Hibiclens and draped in standard fashion. The 20-Fren ch UroLift visual obturator and sheath were used to traverse the urethra and into the bladder with re lative ease. The prostate was visualized on the way in, and significant interdigitating lateral loba r hypertrophy was again noted with mild intravesical projection. As a result, I switched the visual bonding equipment operator for the first UroLift delivery device and implant, and I targeted the patient's left lateral wall of the prostate at the bladder neck region at approximately the 2 o'clock position angled appro ximately 30 degrees from the 12 o'clock position. I advanced the scope distally approximately 1.5 to 2 cm from the bladder neck opening and angled the scope about 15 degrees against the prostate tissue . I then pulled the trigger once delivering the needle through the substance of the prostate before compressing the tissue as much as possible to ensure the tip of the needle exited the capsular surfac e. I then pulled the trigger a second time delivering the capsular tab and partially retracting the needle. A third pull of the trigger did completely retract the needle and began to tension the sutur e. I then pulled the trigger the fourth time after advancing the scope back toward the midline and 2 -3 mm toward the bladder neck opening until the white line of the monofilament was centered in the de li[place] bay, and this did deploy the urethral in piece, which did nicely retract the tissue laterally on the left side at the bladder neck. The end piece did situate just within the prostatic fossa at t he bladder neck within likely 1 or 2 mm from the opening. I then advanced the scope back into the bl adder lumen and switched the UroLift delivery device for a second implant. This implant was then tar geted at the patient's right bladder neck in a similar contralateral position approximately 1.5 to 2 cm distal to the bladder neck opening. This similarly did create a nice opening at the bladder neck and then a third implant was targeted at the apex on the left by kissing the verumontanum with the ti p of the scope and targeting the implant at the 3 o'clock position. A fourth implant was placed on t he right apex at around the 9 o'clock position. I surveyed the channel created, and some mid zone hy pertrophy that was still kissing was present as it was obscuring the anterior channel; so I placed a fifth implant on the patient's left mid zone of the prostate before sixth implant was placed in the r ight mid zone of the prostate. This did create a beautiful continuous anterior channel visible from the apex all the way through and into the bladder neck. There was slight elevation of the median bar , but the channel was not obstructed. As a result, since there was [id number] significant prostat ic urethral bleeding, I decompressed this bladder fluid and urine and removed the scope. The patient was then taken out of the lithotomy position, awakened from general anesthesia, transferred to a [facility] etcher, and then transferred to the recovery room in good condition. Complications: None. Discharge Disposition: Will be standard UroLift pathway with followup to be established in about 1 m [facility]'s time. He may plan to begin radiation therapy approximately 3-4 weeks from completion of the U roLift as long as his symptoms have resolved. JAQUI/MODL Voice ID: [id number] Report ID: [id number]
== END 2024-10-28 13:15 | disposition home or self-care (01) ==
LOC: OR 06:59
PROVIDERS: ATTEND Urology
PROC: 0T7D8DZ Dilation of Urethra with Intraluminal Device, Via Natural or Artificial Opening Endoscopic (ICD-10-PCS; principal; 2024-10-28 08:15)
PROC: 0VH43YZ Insertion of Other Device into Prostate and Seminal Vesicles, Percutaneous Approach (ICD-10-PCS; 2024-10-28 08:15)
DX: N40.1 Benign prostatic hyperplasia with lower urinary tract symptoms (principal); C61 Malignant neoplasm of prostate
CPT/HCPCS: 52441; 52442 ×5; 55874; 87086; 36415; 85610; 82947 ×2; J2704 ×2; J2003; J3010; J2405; J7040; J7030; 87088